=== PATIENT | male | born 1940 | race Caucasian/White ===

== ENCOUNTER → 2019-02-09 14:56 | Outpatient (CLI) | payer MEDICARE, OTHER, SELFPAY ==
--- NOTE | 2019-02-09 15:06 | XR_ITS ---
EXAM: XR lumbar spine min 4V HISTORY: Recent fall with injury and pain, low right-sided back pain ITS.REASON: LOW BACK PAIN ORDERING PHYSICIAN: Dimas Laura MD PATIENT AGE: 79 years COMPARISON: None FINDINGS: There is normal alignment with no acute fracture or dislocation evident. There is multilevel degenerative disc disease with endplate osteophytes from L1 to S1. No acute fracture or dislocation evident. There is mild sclerosis of left SI joint IMPRESSION: 1. No acute finding. 2. Multilevel degenerative disc disease with endplate osteophytes
--- NOTE | 2019-02-09 15:06 | XR_ITS ---
XR hip RT 2-3V w/pelvis HISTORY: Right hip pain following injury ITS.REASON: LOW BACK PAIN ORDERING PHYSICIAN: Dimas Laura MD PATIENT AGE: 79 years COMPARISON: None FINDINGS: There are moderate osteoarthritic changes of the right hip. No fracture or dislocation. No lytic or blastic change. IMPRESSION: Moderate osteoarthritis of the right hip, no acute fracture
--- NOTE | 2019-02-09 15:06 | XR_ITS ---
XR hip LT 2-3V w/pelvis HISTORY: Bilateral hip pain ITS.REASON: LOW BACK PAIN, ORDERING PHYSICIAN: Dimas Laura MD PATIENT AGE: 79 years COMPARISON: None FINDINGS: There are moderate osteoarthritic changes of the left hip. There is a small band of slight increased density along the medial aspect of the femoral neck. This is nonspecific and could related to an area of sclerosis from a healing fracture. No acute fracture or dislocation is evident. No bony destructive process. IMPRESSION: 1. Moderate osteoarthritis of the left hip. 2. Small band of increased density along the femoral neck medially nonspecific but could be related to an area of sclerosis from a healed fracture
== END ==
PROVIDERS: PCP Internal Medicine Adolescent Medicine; Visit Provider Internal Medicine Adolescent Medicine
DX: M54.41 Lumbago with sciatica, right side (principal)
CPT/HCPCS: 72110; 73502

== ENCOUNTER → 2019-09-09 13:05 | Outpatient (CLI) | payer MEDICARE, OTHER, SELFPAY ==
--- NOTE | 2019-09-09 13:10 | XR_ITS ---
PROCEDURE: XR KNEE RT 3V CLINICAL INDICATION: RT ANTERIOR KNEE PAIN Chronic pain COMPARISON: No exams were available for comparison FINDINGS: Mild osteoarthritic changes are present involving all 3 compartments the. No fracture or dislocation. No lytic or blastic change. Incidental vascular calcification noted. Other findings:None. IMPRESSION: Mild osteoarthritis Dictated by: Quentin Joe MD 09/10/2019 04:49 Electronically signed by Quentin Joe MD in [place] 09/10/2019 04:49
--- NOTE | 2019-09-09 13:10 | XR_ITS ---
PROCEDURE: XR HIP RT 2-3V W/PELVIS CLINICAL INDICATION: RT HIP PAIN Chronic right hip pain COMPARISON: [facility] XR hip LT 2-3V w/pelvis from 02/09/2019 FINDINGS: There are moderate osteoarthritic changes of the right hip with loss of joint space and osteosclerosis and mild osteophyte formation. No fracture or dislocation. An AP view of the pelvis also shows osteoarthritic changes of the left hip with some irregularity of the lateral aspect of the acetabulum with subchondral cystic formation. IMPRESSION: Osteoarthritis of both hips as described above. Overall no significant change Dictated by: Quentin Joe MD 09/10/2019 04:48 Electronically signed by Quentin Joe MD in [place] 09/10/2019 04:48
== END ==
PROVIDERS: PCP Internal Medicine Adolescent Medicine; Visit Provider Internal Medicine Adolescent Medicine
DX: M25.551 Pain in right hip (principal); M25.561 Pain in right knee
CPT/HCPCS: 73502; 73562

== ENCOUNTER → 2019-10-19 06:43 | Outpatient (CLI) | payer MEDICARE, OTHER, SELFPAY ==
--- NOTE | 2019-10-19 | CA_ITS ---
APPROVED REPORT Exam: Pharmacologic Technologist: Adelaida Knott Ht: 5 ft 11 in Wt: 172 lbs BSA: 1.98 m2 HR: 57 bpm BP: 159/62 mmHg Indications: Chest pain Medical History Medications: Gabapentin,,,,, Terazosin,,,,, MeLOXICAM,,,,, [place],,,,, BisOPROLOL,,,,, FluTICASONE,,,,, RoSUVASTATIN,,,,, Stress Test Details Test: LEXISCAN HR Resting HR: 56 bpm Max Heart Rate (APMHR): 139 bpm Max HR Achieved: 90 bpm Target HR (85% APMHR): 118 bpm % of APMHR: 64 Recovery HR: 65 bpm BP Resting BP: 159.0/62.0 mmHg Max BP: 160.0/62.0 mmHg Recovery BP: 153.0/60.0 mmHg ECG Clinical Exercise duration: 04:03 min Highest Stage Achieved: Stress ECG Conclusion Resting ECG: Sinus rhythm with PAC Lexiscan portion complete. Symptoms: Denied any complaint during peak infusion. No chest pain. No shortness of breath. No nausea/vomiting. Arrhythmias/Ectopy: Occasional PVC and occasional PAC. ST-T Changes: Less than 1.[address] depression. Conclusion: Images to follow. Conclusion: Images to follow. Test Summary RECOVERY 04:50 . . 63 . 153/ 60 . . REST 03:13 . . 56 . 159/ 62 . . Stage 1 01:00 . . 85 . . . . Stage 2 01:00 . . 72 . . . . Stage 3 01:00 . . 67 . 160/ 62 . . Stage 4 01:00 . . 69 . 157/ 59 . . Stage 4 01:03 . . 68 . 157/ 59 . Stop exercise at 04:03 RECOVERY 01:00 . . 74 . 154/ 62 . . RECOVERY 02:00 . . 66 . 146/ 73 . . RECOVERY 03:00 . . 73 . 146/ 73 . . RECOVERY 04:00 . . 64 . 142/ 70 . . RECOVERY 04:50 . . 63 . 153/ 60 . . Electronically signed by : Denis Wallace, 10/19/2019 19:52:44
--- NOTE | 2019-10-19 06:54 | NM_ITS ---
APPROVED REPORT Exam: Nuclear Stress Test Indication: Chest pain, HTN, High cholesterol, Tobacco use Patient Location: Outpatient Stress Tech: Adelaida Knott NM Tech:Kirti Luo, ARRT, RT (R)(N) Ht: 5 ft 11 in Wt: 172 lbs HR: 57 bpm BP: 159/62 mmHg BSA: 1.98 m2 BMI: 23.9 History: Chest pain, HTN, High cholesterol, Tobacco use Procedure: Patient received a 0.4 mg of intravenous Lexiscan, resting heart rate 57 bpm, resting blood pressure 159/62 mmHg, with Lexiscan maximum heart rate achived was 70 bpm which is Less than 85 % of the maximum predicted heart rate and blood pressure was 160/62 mmHg. With Lexiscan, patient denied any complaint of chest pain. Electrocardiogram Resting electrocardiogram showed sinus rhythm, with Lexiscan there is less than 1.[address] segment depression noted from the baseline EKG. The EKG portion of the Lexiscan Myoview is nondiagnostic. Cardiac Stress and Resting SPECT Images: Cardiac Stress and Resting SPECT images were obtained using technetium 99m Myoview 30.7 mCi stress and 10.93 mCi at rest. Gated SPECT with analysis of segmental wall motion and calculation of the ejection fraction also done. Cardiac stress and resting SPECT images show mild fixed defect inferior apically with normal contracted gated SPECT is likely secondary to soft tissue attenuation, no reversible ischemia seen. Computer derived ejection fraction is 56% with no regional wall motion abnormality, right ventricle is normal size and contractility. Conclusion: 1. The EKG portion of the Lexiscan Myoview is nondiagnostic. 2. No scintigraphic evidence of reversible ischemia seen, a fixed defect inferior apically with normal contracted gated SPECT is likely secondary to soft tissue attenuation, computer derived ejection fraction 56% with no regional wall motion abnormality, right ventricle is normal size and contractility. 3. Likely normal Lexiscan Myoview study. Electronically signed by : Denis Wallace, 10/19/2019 19:55:53
--- NOTE | 2019-10-19 07:09 | CARE MANAGER ---
TERAZOSIN GABAPENTIN NORCO MELOXICAM ROSUVASTATIN BISOPROLOL FLUTICASONE
== END ==
PROVIDERS: PCP Internal Medicine Adolescent Medicine; Visit Provider Internal Medicine Adolescent Medicine
DX: R07.2 Precordial pain (principal)
CPT/HCPCS: 78452; 93017; A9502; J2785

== ENCOUNTER → 2021-03-22 11:01 | Outpatient (CLI) | payer MEDICARE, OTHER, SELFPAY ==
[2021-03-22 11:06] LABS: Microscopic, Urine URINE MICROSCOPIC (MICROSCOPIC)
[2021-03-22 11:35] LABS: Basophils # 0.1 K/mm3 (0-0.2); Basophils % 1.2 % (0.1-2.0); Eosinophils # 0.3 K/mm3 (0.0-0.4); Eosinophils % 3.4 % (0.1-12.0); Hematocrit 37.5 % (42.0-52.0); Hemoglobin 12.1 g/dL (14.1-18.0); Lymphocytes # 2.4 K/mm3 (0.7-4.5); Lymphocytes % 30.1 % (10-50); Mean Corpuscular HGB Conc 32.2 g/dL (31.8-35.4); Mean Corpuscular Hemoglobin 29.7 pg (27.0-31.2); Mean Corpuscular Volume 92.1 fl (80-94); Mean Platelet Volume 8.8 fl (7.4-10.4); Monocytes # 0.3 K/mm3 (0.1-1.0); Monocytes % 3.9 % (1.7-9.3); Neutrophils # 4.9 K/mm3 (1.8-7.8); Neutrophils % 61.5 % (37.0-80.0); Platelet Count 201 K/mm3 (142-424); Red Blood Count 4.07 M/mm3 (4.60-6.20); Red Cell Distribution Width 15.5 % (11.5-17.5); White Blood Count 7.9 K/mm3 (4.8-10.8)
[2021-03-22 11:50] LABS: Appearance,Urine CLEAR (Clear); Bilirubin,Urine Negative (Negative); Blood, Urine 1+ (Negative); Color,Urine YELLOW (Yellow); Glucose,Urine (UA) Negative (Negative); Ketones,Urine Negative (Negative); Leukocyte Esterase,Urine 2+ (Negative); Nitrate,Urine POSITIVE (Negative); Protein,Urine Negative (Negative); Urobilinogen,Urine 0.2 EU/dl (0.2)
[2021-03-22 12:02] LABS: Alanine Aminotransferase 15 U/L (12-78); Albumin Level 4.2 g/dl (3.5-5.0); Albumin/Globulin Ratio 1.2 (1.1-1.8); Alkaline Phosphatase 104 U/L (38-126); Anion Gap 8.6 mEq/L (5-15); Aspartate Amino Transferase 33 U/L (17-59); Bilirubin,Total 0.3 mg/dl (0.2-1.3); Blood Urea Nitrogen 15 mg/dl (9-20); Calcium 9.7 mg/dl (8.4-10.2); Carbon Dioxide 29 mmol/L (22.0-30.0); Chloride 107 mmol/L (98-107); Chol/HDL Ratio 1.9 (1-3.5); Cholesterol 112 mg/dl (140-200); Estimated Glomerular Filt Rate 92 ml/min (>60); GFR (African American) 112 ML/MIN (>60); Globulin 3.5 g/dL (1.3-3.2); Glucose 96 mg/dl (74-100); HDL Cholesterol 59 mg/dl (40-60); Potassium 4.6 mmoL/L (3.5-5.1); Sodium 140 mmol/L (136-145); Total Protein,Serum 7.7 g/dl (6.3-8.2); Triglycerides 72 mg/dl (30-150); VLDL Cholesterol 14 mg/dL (0-40)
[2021-03-22 12:03] LABS: Bacteria,Urine 3+ /lpf
[2021-03-22 12:13] LABS: Direct LDL Cholesterol 33.55 mg/dL (100-129)
[2021-03-22 12:33] LABS: Prostate Specific Ag Screen 1.9 ng/ml (0.0-4.0)
== END ==
PROVIDERS: Visit Provider Internal Medicine Adolescent Medicine
DX: E78.5 Hyperlipidemia, unspecified (principal); N40.1 Benign prostatic hyperplasia with lower urinary tract symptoms; Z12.5 Encounter for screening for malignant neoplasm of prostate
CPT/HCPCS: 36415; 80053; 80061; 81001; 85025; 87086; 87088; 87186; G0103

== ENCOUNTER → 2021-06-26 08:11 | Outpatient (CLI) | payer MEDICARE, OTHER, SELFPAY ==
--- NOTE | 2021-06-26 08:16 | CT_ITS ---
PROCEDURE: CT SINUS WO CON CLINICAL HISTORY: MASS OF JAW COMPARISON: No exams were available for comparison TECHNIQUE: Axial images obtained with sagittal and coronal reformats. All CT scans at the facility use one or more dose reduction, viz: automated exposure control, ma/kV adjustment per patient size (including targeted exams where dose is matched to indication, i.e. head), or iterative reconstruction technique. FINDINGS: There is mild mucosal thickening involving the ethmoid sinuses. No sinus air-fluid level is evident. There are small bilateral nilsa bullosa with minimal rightward nasal septal deviation. The ostiomeatal units are patent. A BB is placed along the right angle of the mandible region where there is a palpable nodule. Just deep to this is a round 1.5 cm soft tissue density. This is along the lateral aspect of the submandibular gland for. There is a small extension of this nodular area toward the submandibular gland versus an unopacified vessel. Evaluation is limited without IV contrast. The inferior aspect of the right submandibular gland is slightly prominent laterally. Other smaller lymph nodes are present in both sides of the neck. There is a 1.2 cm soft tissue nodule which is superficial to the body of the right mandible. This could also be related to an enlarged lymph node. The right mastoid sinus is nearly completely opacified. There is opacification of the right middle ear. There is small amount of fluid in the left mastoid sinus. The left middle ear is aerated. The there is a periapical lucency involving the patient's left mandibular premolar consistent with periapical abscess. There are degenerative changes in the cervical spine IMPRESSION: 1. 1.5 cm soft tissue density in the right angle of the mandible region corresponding to the palpable abnormality may represent mildly prominent lymph node. There is however question of a small extension of this nodule medially to the submandibular gland versus an unopacified vessel. Suggest CT face without and with contrast for further evaluation. Just anterior to this region and slightly superior is an additional soft tissue nodule at 1.2 cm and also possibly due to a lymph node. 2. Bilateral mastoid effusions right greater than left with opacification of the right middle ear suggesting underlying inflammatory/infectious changes. Dictated by: Quentin Joe MD 06/26/2021 10:49 Quentin Joe MD in [place] 06/26/2021 10:49
== END ==
PROVIDERS: PCP Internal Medicine Adolescent Medicine; Visit Provider Internal Medicine Adolescent Medicine
DX: M27.8 Other specified diseases of jaws (principal)
CPT/HCPCS: 70486

== ENCOUNTER → 2021-11-22 10:33 | Outpatient (CLI) | payer MEDICARE, OTHER, SELFPAY ==
--- NOTE | 2021-11-22 10:41 | CT_ITS ---
FINAL REPORT TECHNIQUE: Thin section axial CT images were obtained through the neck after intravenous contrast administration. Coronal and sagittal reformats were also obtained. This study was performed with techniques to keep radiation doses as low as reasonably achievable (ALARA). Individualized dose reduction techniques using automated exposure control or adjustment of mA and/or kV according to the patient''s size were employed. CLINICAL HISTORY: right buccal./submandibular mass FINDINGS: The nasopharynx, oropharynx, hypopharynx and larynx are unremarkable. There are 2 masses visualized. The more superior mass like at the angle of the right mandible measuring 2.0 x 1.4 cm. This is well seen on image 43 of series 5. This mass appears to be a solid, fairly high attenuation mass. A second mass is seen more inferior to the body of the right mandible measuring 1.4 x 1.1 cm. This has low attenuation and is well seen on image is 52 of series 5. The visualized sinuses are clear. There is complete opacification of the right mastoid air cells and right middle ear cavity. There is prominence of the soft tissues in the region of the right torus tubarius. There is no adenopathy. There is a spiculated, noncalcified soft tissue mass at the right apex measuring 3.0 x 1.5 cm. This is well seen on image 88 of series 5. This could be postinflammatory or neoplastic. On the sagittal images, this extends to the apex. IMPRESSION: 2 soft tissue masses superficial to the right mandible. These masses have different characteristics but would each be amenable to tissue sampling. Neoplasia is not excluded. Complete opacification of the right mastoid air cells and right middle ear cavity. Asymmetric prominence of the right torus tubarius. ENT evaluation is recommended. Spiculated lesion in the right apex could be postinflammatory or neoplastic. Reviewed, Interpreted and Dictated by Nahum Zimmerman MD Transcribed by Susan Montalvo Authenticated by Nahum Zimmerman MD on 11/22/2021 03:14:34 PM [facility]
[2021-11-22 11:09] LABS: Blood Urea Nitrogen 15 mg/dl (9-20); Estimated Glomerular Filt Rate 81 ml/min (>60); GFR (African American) 98 ML/MIN (>60)
== END ==
PROVIDERS: PCP Internal Medicine Adolescent Medicine; Visit Provider Otolaryngology
DX: K11.8 Other diseases of salivary glands (principal); R22.0 Localized swelling, mass and lump, head
CPT/HCPCS: 36415; 70491; 82565; 84520; Q9967

== ENCOUNTER → 2021-11-29 09:02 | Outpatient (CLI) | payer MEDICARE, OTHER, SELFPAY ==
--- NOTE | 2021-11-29 09:03 | US_ITS ---
FINAL REPORT CLINICAL HISTORY: fna palp area rt jaw FINDINGS: Ultrasound guided facial soft tissue mass biopsy. HISTORY: Right facial mass. PROCEDURE: After informed consent was obtained and a time-out was performed, the patient was prepped and draped in usual sterile fashion over the right face. Utilizing local anesthesia and sterile technique with a 25-gauge needle, access to lesion was obtained. Three passes were made. The patient received no conscious sedation. The patient tolerated procedure well and left the department in good condition. IMPRESSION: Status post ultrasound guided biopsy of right facial mass without immediate complication. Films reviewed , interpreted and dictated by Dr. Strange. Transcribed by Juan Diego Navarro PA-C. Reviewed, Interpreted and Dictated by Rj Strange III, MD Transcribed by ANGIE Ayala Authenticated by Rj Strange III, MD on 12/01/2021 12:00:27 PM [facility]
== END ==
PROVIDERS: PCP Internal Medicine Adolescent Medicine; Visit Provider Otolaryngology
DX: R22.0 Localized swelling, mass and lump, head (principal)
CPT/HCPCS: 10005; 88173

== ENCOUNTER → 2021-12-30 09:28 | Outpatient (CLI) | payer MEDICARE, OTHER, SELFPAY | PROVIDERS: PCP Internal Medicine Adolescent Medicine; Visit Provider Otolaryngology | DX: Z01.812 Encounter for preprocedural laboratory examination (principal); Z11.52 Encounter for screening for COVID-19 | CPT/HCPCS: C9803; U0003; U0005 ==

== ENCOUNTER → 2022-01-01 10:11 | Outpatient (CLI) | payer MEDICARE, OTHER, SELFPAY ==
--- NOTE | 2022-01-01 10:37 | ECG_ITS ---
APPROVED REPORT Exam: Resting ECG HR:64 bpm ECG Measurements Heart Rate 64 AXES OR 210 P 66 QRSd 96 QRS 39 QT 402 T 42 QTc 411 Conclusion SINUS RHYTHM WITH SINUS ARRHYTHMIA WITH FIRST DEGREE AV BLOCK ABNORMAL ECG UNCONFIRMED REPORT Electronically signed by : Dimas Laura MD 01/03/2022 21:07:19
[2022-01-01 11:03] LABS: Basophils # 0.1 K/mm3 (0-0.2); Basophils % 1.3 % (0.1-2.0); Eosinophils # 0.2 K/mm3 (0.0-0.4); Eosinophils % 2.3 % (0.1-12.0); Hematocrit 39.4 % (42.0-52.0); Hemoglobin 12.7 g/dL (14.1-18.0); Lymphocytes % 21.5 % (10-50); Mean Corpuscular HGB Conc 32.3 g/dL (31.8-35.4); Mean Corpuscular Hemoglobin 30.7 pg (27.0-31.2); Mean Platelet Volume 8.7 fl (7.4-10.4); Monocytes # 0.5 K/mm3 (0.1-1.0); Neutrophils # 6.4 K/mm3 (1.8-7.8); Neutrophils % 69.9 % (37.0-80.0); Platelet Count 194 K/mm3 (142-424); Red Blood Count 4.15 M/mm3 (4.60-6.20); Red Cell Distribution Width 15.9 % (11.5-17.5); White Blood Count 9.2 K/mm3 (4.8-10.8)
[2022-01-01 12:27] LABS: Chloride 104 mmol/L (98-107); Potassium 4.5 mmoL/L (3.5-5.1); Sodium 135 mmol/L (136-145)
[2022-01-01 12:29] LABS: Alanine Aminotransferase 15 U/L (12-78); Aspartate Amino Transferase 35 U/L (17-59); Blood Urea Nitrogen 15 mg/dl (9-20); Estimated Glomerular Filt Rate 92 ml/min (>60); GFR (African American) 112 ML/MIN (>60)
[2022-01-01 12:30] LABS: Albumin Level 4.2 g/dl (3.5-5.0); Albumin/Globulin Ratio 1.2 (1.1-1.8); Alkaline Phosphatase 103 U/L (38-126); Anion Gap 9.5 mEq/L (5-15); Bilirubin,Total 0.6 mg/dl (0.2-1.3); Calcium 8.6 mg/dl (8.4-10.2); Carbon Dioxide 26 mmol/L (22.0-30.0); Globulin 3.5 g/dL (1.3-3.2); Glucose 88 mg/dl (74-100); Total Protein,Serum 7.7 g/dl (6.3-8.2)
== END ==
PROVIDERS: PCP Internal Medicine Adolescent Medicine; Visit Provider Otolaryngology
DX: Z01.818 Encounter for other preprocedural examination (principal); K11.8 Other diseases of salivary glands; R22.0 Localized swelling, mass and lump, head
CPT/HCPCS: 36415; 80053; 85025; 93005

== ENCOUNTER 2022-01-02 06:59 | Day surgery (SDC) | payer MEDICARE, OTHER, SELFPAY ==
[2022-01-02] VITALS (12 sets, daily range): BP systolic 104–166; BP diastolic 62–93; PULSE 54–82; RESP 14–18; TEMP 36.2–36.6; O2SAT 94–100; BMI 21.6
--- NOTE | 2022-01-02 07:53 | HMH.ANESCL ---
[facility] Anesthesia Checklist - Patient Identification Patient Identification: Arm Band - Structural Data Admitted From: Home Planned Operative Procedure/s: Buccal mass and neck mass excision Consent for Planned Operative Procedure(s) Verified: Yes - NPO Status Verified Time NPO: 00:00 - Additional verifications Anesthesia Reactions: No Hx Blood Transfusions: No Blood Transfusion Reaction: No - Airway Assessment C-Spine Mobility Assessed: Yes TMJ Mobility Assessed: Yes Dentition: Poor Dentition (1 tooth left) - Neurological Assessment Level of Consciousness: Awake Hx Seizures: No Numbness or tingling in extremities: No - Anesthesia Plan Anesthesia Risk discussed: Yes Anesthesia Plan: Verified ASA Class: III Anesthesia Type: General [facility] History I have reviewed the patient's past medical history: Yes Medical History: Reports:: Arrhythmia, Hypertension Denies:: Cancer, Diabetes Mellitus Type 1, Diabetes Mellitus Type 2, Internal Pacemaker, MRSA, Seizures *Have you ever received a pneumonia vaccine?: Yes *Have you received a flu vaccine this season?: Yes Other Medical History: Reports: Other. Denies: Blood Transfusion Reaction Anesthesia experience/problems:: None Other Surgeries: Yes: No Previous Surgery. No: Pacemaker Amputation: No Fractures: No - *Social History Smoking Status: Current every day smoker Tobacco Type: cigarettes # Packs/Day (cigarettes): 1 Alcohol Intake: never Substance Use Type: denies use *Occupational Status:: retired *Travel in the last 8 weeks: None Family Hx:: No significant family history
--- NOTE | 2022-01-02 07:56 | SUR.PREOP ---
Pt denies any heart problems but history shows HTN. EKG shows first degree AV Block, reported to Nilo Valentine CRNA for review and SCREED OPERATOR said OK to continue for surgery today.
--- NOTE | 2022-01-02 08:25 | SUR.PREOP ---
Updated Dr. Geller of EKG results. ok to proceed with surgery today.
--- NOTE | 2022-01-02 11:38 | HMH.ANESI ---
[facility] Anesthesia Record Part I Intake, IV Amount: 1,500 Estimated blood loss (mL): 25 Urine output (mL): 0 Blood Pressure: 134/66 SaO2: 98 Pulse Rate: 65 Respiratory Rate: 16 Temperature: 97.1 F Patient is:: Drowsy, Stable Stable to PACU at:: 11:35
--- NOTE | 2022-01-02 11:41 | HMH.OPNOTE ---
Date of procedure: 01/02/22 Pre-op Diagnosis:: Right submandibular mass, right buccal space mass Post-op Diagnosis:: Same Procedure performed:: Partial excision right submandibular gland, excision of right buccal space mass from an external approach, nerve integrity monitoring of the facial nerve Surgeon:: Jame Geller MD SUBSTITUTE BUS DRIVER:: David Lazo Anesthesia: GETA Estimated blood loss (mL): 25 Operative findings:: 2-1/2 to 3 cm right submandibular mass adjacent to but separate from the right submandibular gland. Marginal branch of the facial nerve was identified and preserved. Most of the right submandibular gland was preserved. Separate 2.5 cm right buccal space mass anterior to the masseter and inferior to the buccal fat pad and lateral to the orbicularis jacque muscle. The mass was adherent to surrounding soft tissue structures and separate from the underlying oral mucosa. Stensen's duct did not appear to be involved. Operative note:: The patient was brought to the operating room and after adequate general anesthesia, the patient was placed supine and a shoulder roll placed and then nerve integrity monitoring electrodes placed to monitor the lower branches of the facial nerve and then 1% lidocaine with epinephrine used to locally infiltrate a skin crease below the angle of the mandible and a separate skin crease just lateral to the oral commissure. Attention was first drawn to the neck. An incision was made and carried through the underlying platysma and then dissection performed deep to the platysma until the palpable mass was identified. It was adjacent to but separate from the submandibular gland. The marginal branch of the facial nerve was positively identified and then retracted superiorly and then dissection performed around the capsule of the mass it from the underlying submandibular gland. The facial artery and vein were identified and preserved and from the mass. A small portion of normal submandibular gland was included in the specimen but the bulk of the gland was left intact and functionally preserved. The mass was labeled as submandibular mass and sent for permanent section analysis. The wound was closed in 2 layers by reapproximating the platysma and subcutaneous tissues with 4-0 Vicryl and the skin edges with 5-0 nylon a sterile dressing was placed and attention drawn to the more superior buccal space mass which was clearly separate from this mass. An external approach was planned and a skin crease incision made just lateral to the oral commissure and dissection performed down to the underlying palpable mass. Careful dissection was performed around the capsule of the mass and it was somewhat adherent to the surrounding soft tissue structures. Small palisading branches of the facial nerve were individually identified and preserved and the mass was from the masseter posteriorly, the buccal fat pad superiorly, the oral constrictor muscle medially, and the orbicularis jacque muscle anteriorly. Small vascular perforators were ligated with bipolar cautery and a small feeding artery was ligated with 3-0 silk as was the corresponding vein. The specimen was sent for permanent section analysis and hemostasis was seen to be adequate. The wound was again closed in 2 layers with 4-0 Vicryl and 5-0 nylon and a sterile dressing was placed and the procedure concluded. All counts were correct and blood loss was less than 25 mL and patient was sent recovery in stable condition Condition: stable Disposition: PACU Specimens:: Right submandibular mass, right buccal space mass Complications:: None
--- NOTE | 2022-01-02 14:35 | HMH.ANESII ---
[facility] Anesthesia Record Part II Discharge Time: 12:15 Destination: Surgical Day Care (OP Surgery) PACU nurse assessment reviewed?: Yes Patient Condition:: Good Anesthesia Complications:: None Swallowing reflex intact?: Yes Cyanosis?: No Blood Pressure: 151/70 Pulse Rate: 71 Temperature: 97.5 F Mental Status: Alert & Oriented Pain level:: 4 Nausea and/or vomitting:: None Intake, IV Amount: 0
== END 2022-01-02 13:00 | disposition home or self-care (01) ==
LOC: OR 07:02
PROVIDERS: PCP Internal Medicine Adolescent Medicine; Visit Provider Otolaryngology
DX: K11.8 Other diseases of salivary glands (principal); R22.0 Localized swelling, mass and lump, head; I10 Essential (primary) hypertension; I49.9 Cardiac arrhythmia, unspecified; Z72.0 Tobacco use; Z88.0 Allergy status to penicillin; Z79.82 Long term (current) use of aspirin; Z79.899 Other long term (current) drug therapy
CPT/HCPCS: 40812; 42440; 88305; 88342; 96374; J2405

== ENCOUNTER → 2022-01-16 13:41 | Outpatient (POV) | payer MEDICARE, OTHER, SELFPAY | PROVIDERS: Visit Provider Dermatology | DX: Z00.00 Encounter for general adult medical examination without abnormal findings (principal) ==

== ENCOUNTER 2022-02-08 12:20 | Emergency (ER) | payer MEDICARE, OTHER, SELFPAY ==
[2022-02-08] VITALS (7 sets, daily range): BP systolic 129–145; BP diastolic 65–79; PULSE 45–54; RESP 10–16; TEMP 36.5; O2SAT 83–99; BMI 21.6
--- NOTE | 2022-02-08 12:09 | ECG_ITS ---
APPROVED REPORT Exam: Resting ECG HR:56 bpm ECG Measurements Heart Rate 56 AXES AR 246 P 63 QRSd 101 QRS 33 QT 422 T 54 QTc 412 Conclusion SINUS BRADYCARDIA WITH FIRST DEGREE AV BLOCK ABNORMAL ECG UNCONFIRMED REPORT Electronically signed by : Dimas Laura MD 02/09/2022 19:41:24
--- NOTE | 2022-02-08 12:24 | XR_ITS ---
FINAL REPORT CLINICAL HISTORY: chest pain COMPARISON: July 15, 2017 FINDINGS: There is lordotic positioning. The heart size is normal. The mediastinum is normal. There is coarse linear density in both lungs stable from prior exam favored to be post-inflammatory. There is biapical pleural densities probably due to scarring. There is no pneumothorax. There is no osseous abnormality. IMPRESSION: Lordotic positioning. Bilateral pulmonary densities favored to be post-inflammatory. Standard PA and lateral chest x-ray may be better able to characterize. Reviewed, Interpreted and Dictated by Nahum Zimmerman MD Transcribed by Caesar Avila Authenticated by Nahum Zimmerman MD on 02/08/2022 02:17:03 PM [facility]
--- NOTE | 2022-02-08 12:30 | PC.NURSE ---
ED MD at
[2022-02-08 12:34] LABS: Basophils # 0.2 K/mm3 (0-0.2); Basophils % 2.6 % (0.1-2.0); Chloride 106 mmol/L (98-107); Eosinophils # 0.1 K/mm3 (0.0-0.4); Eosinophils % 1.8 % (0.1-12.0); Hemoglobin 11.7 g/dL (14.1-18.0); Lymphocytes # 1.6 K/mm3 (0.7-4.5); Lymphocytes % 24.1 % (10-50); Mean Corpuscular HGB Conc 32.6 g/dL (31.8-35.4); Mean Corpuscular Hemoglobin 31.3 pg (27.0-31.2); Mean Corpuscular Volume 95.8 fl (80-94); Mean Platelet Volume 9.6 fl (7.4-10.4); Monocytes # 0.3 K/mm3 (0.1-1.0); Monocytes % 4.5 % (1.7-9.3); Neutrophils # 4.3 K/mm3 (1.8-7.8); Platelet Count 193 K/mm3 (142-424); Red Blood Count 3.75 M/mm3 (4.60-6.20); Red Cell Distribution Width 16.1 % (11.5-17.5); White Blood Count 6.4 K/mm3 (4.8-10.8)
[2022-02-08 12:35] LABS: Potassium 4.4 mmoL/L (3.5-5.1); Sodium 138 mmol/L (136-145)
[2022-02-08 12:37] LABS: Blood Urea Nitrogen 13 mg/dl (9-20); Estimated Glomerular Filt Rate 92 ml/min (>60); GFR (African American) 111 ML/MIN (>60)
[2022-02-08 12:38] LABS: Anion Gap 10.4 mEq/L (5-15); Calcium 8.2 mg/dl (8.4-10.2); Carbon Dioxide 26 mmol/L (22.0-30.0); Glucose 109 mg/dl (74-100)
--- NOTE | 2022-02-08 12:40 | HMH.EDGENADL ---
ED Disposition Clinical Impression: Nontraumatic chest pain Disposition: Home, Self-Care Condition on Discharge: Good Additional Instructions: Follow-up with your PCP within the next week, return to ED with new, worsening, concerning symptoms. Continue home medications as previously directed. Referrals: Dimas Laura MD [Primary Care Provider] - - Critical Care Critical Care Time: No Attestation: On , the high probability of a clinically significant, sudden or life threatening deterioration of the following system(s) required my full and direct attention, intervention and personal management. The time I documented below is in addition to time spent performing reported procedures but includes the following listed in this critical care notation. Medical Decision Making - Medical Records Medical records reviewed: Yes: I reviewed the patient's medical records. - Shaun Inquiry Pt receiving controlled substance: No Vital Signs: 02/08/22 12:20 02/08/22 13:50 02/08/22 13:59 Temperature 97.7 F Temperature Source Oral Pulse Rate 54 L 51 L Pulse Rate [Radial] 54 L Respiratory Rate 16 15 12 Blood Pressure 145/68 H 145/68 H Blood Pressure [Right Arm] 137/65 Blood Pressure Mean [Right Arm] 89 Blood Pressure Position [Right Arm] Sitting 02 Sat by Pulse Oximetry 98 99 83 L Oxygen Delivery Method Room Air Room Air 02/08/22 14:31 02/08/22 15:00 Temperature Temperature Source Pulse Rate 52 L 45 L Pulse Rate [Radial] Respiratory Rate 10 L 14 Blood Pressure 138/79 144/71 H Blood Pressure [Right Arm] Blood Pressure Mean [Right Arm] Blood Pressure Position [Right Arm] 02 Sat by Pulse Oximetry 94 L 97 Oxygen Delivery Method - Lab Data Lab Results 02/08/22 12:20: WBC 6.4, RBC 3.75 L, Hgb 11.7 L, Hct 36.0 L, MCV 95.8 H, MCH 31.3 H, MCHC 32.6, RDW 16.1, Plt Count 193, MPV 9.6, Neut % (Auto) 67.0, Lymph % (Auto) 24.1, [place] % (Auto) 4.5, Eos % (Auto) 1.8, Baso % (Auto) 2.6 H, Neut # (Auto) 4.3, Lymph # (Auto) 1.6, [place] # (Auto) 0.3, Eos # (Auto) 0.1, Baso # (Auto) 0.2 02/08/22 12:20: Sodium 138, Potassium 4.4, Chloride 106, Carbon Dioxide 26, Anion Gap 10.4, BUN 13, Creatinine 0.80, Estimated GFR 92, Est GFR ( Amer) 111, Glucose 109 H, Calcium 8.2 L, Troponin I < 0.01 02/08/22 12:20: Lipase 64 02/08/22 15:01: Troponin I < 0.01 Result diagrams: 02/08/22 12:20 02/08/22 12:20 Orders (Tests/Meds): ED MEDICATIONS Discontinued Medications Generic Name Dose Route Start Last Admin Trade Name Freq PRN Reason Stop Dose Admin Acetaminophen 500 mg 02/08/22 12:54 02/08/22 13:41 Acetaminophen 500mg Tab PO 02/08/22 12:55 500 mg ONCE ONE Administration Belladonna Alkaloids 60 ml 02/08/22 12:55 02/08/22 13:41 Gi Cocktail 60ml Udc PO 02/08/22 12:56 60 ml ONCE ONE Administration ORDERS Category Date Time Status Troponin I Q3H Lab 02/08/22 18:30 Ordered - Radiology Data #1 Image(s): Chest Image Reviewed: Yes I reviewed the patient's radiology results, Yes I reviewed the patient's radiology image FINDINGS: There is lordotic positioning. The heart size is normal. The mediastinum is normal. There is coarse linear density in both lungs stable from prior exam favored to be post-inflammatory. There is biapical pleural densities probably due to scarring. There is no pneumothorax. There is no osseous abnormality. IMPRESSION: Lordotic positioning. Bilateral pulmonary densities favored to be post-inflammatory. Standard PA and lateral chest x-ray may be better able to characterize. Reviewed, Interpreted and Dictated by Nahum Zimmerman MD Transcribed by Caesar Avila - ECG Data Tracing #1 I reviewed this ECG and interpreted as documented below: EKG sinus bradycardia with a rate of 56, normal axis, no ST segment elevation, first-degree AV block, QTC 412 ms Medical Decision Narrative: 82-year-old male with past medical history of hyp
[2022-02-08 12:52] LABS: Troponin I < 0.01 ng/ml (0.00-0.034)
[2022-02-08 13:10] LABS: Lipase 64 U/L (23-300)
--- NOTE | 2022-02-08 14:56 | PC.NURSE ---
patient given an update; drawing 2nd troponin here shortly
[2022-02-08 15:48] LABS: Troponin I < 0.01 ng/ml (0.00-0.034)
--- NOTE | 2022-02-08 16:05 | PC.NURSE ---
Patient given an update
--- NOTE | 2022-02-08 16:14 | PC.NURSE ---
ED MD at for update on POC
== END 2022-02-08 17:00 | disposition home or self-care (01) ==
PROVIDERS: Emergency Provider Emergency Medicine; PCP Internal Medicine Adolescent Medicine
DX: R07.9 Chest pain, unspecified (principal); R10.13 Epigastric pain; I10 Essential (primary) hypertension; I49.9 Cardiac arrhythmia, unspecified; J44.9 Chronic obstructive pulmonary disease, unspecified; F17.210 Nicotine dependence, cigarettes, uncomplicated; Z79.51 Long term (current) use of inhaled steroids; Z79.82 Long term (current) use of aspirin; Z79.899 Other long term (current) drug therapy; Z88.0 Allergy status to penicillin
CPT/HCPCS: 71045; 80048; 83690; 84484; 85025; 93005; 99285

== ENCOUNTER → 2022-03-03 10:18 | Outpatient (CLI) | payer MEDICARE, OTHER, SELFPAY ==
[2022-03-03 10:26] LABS: MANUAL DIFFERENTIAL MANUAL DIFFERENTIAL (MANUAL DIFF)
[2022-03-03 11:03] LABS: Basophils # 0.1 K/mm3 (0-0.2); Basophils % 1.9 % (0.1-2.0); Eosinophils # 0.3 K/mm3 (0.0-0.4); Eosinophils % 4.2 % (0.1-12.0); Hematocrit 38.8 % (42.0-52.0); Hemoglobin 12.2 g/dL (14.1-18.0); Lymphocytes # 1.6 K/mm3 (0.7-4.5); Lymphocytes % 24.1 % (10-50); Mean Corpuscular HGB Conc 31.5 g/dL (31.8-35.4); Mean Corpuscular Hemoglobin 30.7 pg (27.0-31.2); Mean Corpuscular Volume 97.6 fl (80-94); Monocytes # 0.4 K/mm3 (0.1-1.0); Monocytes % 5.7 % (1.7-9.3); Neutrophils # 4.1 K/mm3 (1.8-7.8); Platelet Count 196 K/mm3 (142-424); Red Blood Count 3.97 M/mm3 (4.60-6.20); Red Cell Distribution Width 15.8 % (11.5-17.5); White Blood Count 6.4 K/mm3 (4.8-10.8)
[2022-03-03 11:50] LABS: Blood Urea Nitrogen 21 mg/dl (9-20); Calcium 9.1 mg/dl (8.4-10.2); Carbon Dioxide 28 mmol/L (22.0-30.0); Chloride 104 mmol/L (98-107); Estimated Glomerular Filt Rate 80 ml/min (>60); GFR (African American) 97 ML/MIN (>60); Glucose 96 mg/dl (74-100); Sodium 138 mmol/L (136-145)
[2022-03-03 13:02] LABS: Eosinophils % 4 % (0-3); Lymphocytes % 22 % (10-50); Monocytes % 4 % (2-9); Neutrophils % 68 % (42-76); Total Cells Counted 50
[2022-03-03 13:03] LABS: Platelet Estimate Normal; RBC Morphology Normal
== END ==
PROVIDERS: PCP Internal Medicine Adolescent Medicine; Visit Provider Otolaryngology
DX: H65.90 Unspecified nonsuppurative otitis media, unspecified ear (principal); H91.90 Unspecified hearing loss, unspecified ear; Z01.818 Encounter for other preprocedural examination; Z11.52 Encounter for screening for COVID-19
CPT/HCPCS: 36415; 80048; 85007; 85014; 85018; 85048; 85049; C9803; U0003; U0005

== ENCOUNTER 2022-03-06 09:51 | Day surgery (SDC) | payer MEDICARE, OTHER, SELFPAY ==
[2022-03-06] VITALS (10 sets, daily range): BP systolic 139–180; BP diastolic 58–93; PULSE 60–70; RESP 12–18; TEMP 36.2–36.3; O2SAT 92–100; BMI 21.4
--- NOTE | 2022-03-06 10:40 | HMH.OPNOTE ---
Date of procedure: 03/06/22 Pre-op Diagnosis:: Chronic serous otitis media Post-op Diagnosis:: Chronic serous otitis media Procedure performed:: Bilateral tympanostomy and tube placement Surgeon:: Jame Geller MD SALOON KEEPER:: David Lazo Anesthesia: GETA Estimated blood loss (mL): 0 Operative findings:: Serous otitis media bilaterally Operative note:: The patient was brought to the operating room and after adequate general anesthesia the ears were draped in the usual sterile fashion and operating microscope employed to visualize the tympanic membranes. Tympanostomies were made in the anterior-inferior quadrant and this was done bilaterally and suction employed to clear the middle ear space effusion. [place] T tubes were then placed and Ciprodex drops applied and the procedure concluded. All counts correct. Blood loss 0. Patient was sent to recovery in stable condition. Condition: stable Disposition: PACU Complications:: none
--- NOTE | 2022-03-06 10:47 | HMH.ANESCL ---
[facility] Anesthesia Checklist - Patient Identification Patient Identification: Arm Band - Structural Data Admitted From: Home Planned Operative Procedure/s: BMT Consent for Planned Operative Procedure(s) Verified: Yes Verified Documents: Surgical Consent, History and Physical - NPO Status Verified Time NPO: 00:00 - Additional verifications Anesthesia Reactions: No Hx Blood Transfusions: No Blood Transfusion Reaction: No - Airway Assessment C-Spine Mobility Assessed: Yes (mp2) TMJ Mobility Assessed: Yes Dentition: Poor Dentition - Neurological Assessment Level of Consciousness: Awake, Alert - Anesthesia Plan Anesthesia Risk discussed: Yes Anesthesia Plan: Verified ASA Class: III Anesthesia Type: General [facility] History I have reviewed the patient's past medical history: Yes Medical History: Reports:: Arrhythmia, Cancer, Chronic Obstructive Pulmonary Disease (COPD), Hypertension Denies:: Diabetes Mellitus Type 1, Diabetes Mellitus Type 2, Internal Pacemaker, MRSA, Seizures *Have you ever received a pneumonia vaccine?: Yes *Have you received a flu vaccine this season?: Yes Other Medical History: Reports: Other. Denies: Blood Transfusion Reaction Anesthesia experience/problems:: nac Other Surgeries: Yes: Other. No: Pacemaker Amputation: No Fractures: No - *Social History Smoking Status: Current every day smoker Tobacco Type: cigarettes # Packs/Day (cigarettes): 1 Alcohol Intake: never Substance Use Type: denies use *Occupational Status:: retired Housing: house Household Members: none *Travel in the last 8 weeks: None Family Hx:: No significant family history
--- NOTE | 2022-03-06 10:48 | HMH.ANESI ---
[facility] Anesthesia Record Part I Intake, IV Amount: 400 Estimated blood loss (mL): 0 Urine output (mL): 0 Blood Pressure: 142/81 SaO2: 98 Pulse Rate: 70 Respiratory Rate: 16 Temperature: 97.2 F Patient is:: Drowsy, Stable Stable to PACU at:: 10:45
--- NOTE | 2022-03-06 13:42 | P.PN_ITS ---
[facility] Anesthesia Record Part II Discharge Time: 11:15 Destination: Surgical Day Care (OP Surgery) PACU nurse assessment reviewed?: Yes Patient Condition:: Good Anesthesia Complications:: None Swallowing reflex intact?: Yes Cyanosis?: No Blood Pressure: 139/87 Pulse Rate: 67 Temperature: 97.2 F Mental Status: Alert & Oriented Pain level:: 0 Nausea and/or vomitting:: None Intake, IV Amount: 0
== END 2022-03-06 11:49 | disposition home or self-care (01) ==
LOC: OR 09:52
PROVIDERS: PCP Internal Medicine Adolescent Medicine; Visit Provider Otolaryngology
DX: H65.23 Chronic serous otitis media, bilateral (principal); J44.9 Chronic obstructive pulmonary disease, unspecified; I10 Essential (primary) hypertension; I49.9 Cardiac arrhythmia, unspecified; Z85.9 Personal history of malignant neoplasm, unspecified; Z72.0 Tobacco use; Z79.82 Long term (current) use of aspirin; Z79.899 Other long term (current) drug therapy; Z79.51 Long term (current) use of inhaled steroids
CPT/HCPCS: 69436; J2405

== ENCOUNTER → 2022-03-08 14:23 | Outpatient (CLI) | payer MEDICARE, OTHER, SELFPAY ==
[2022-03-10 09:15] LABS: Prostate Specific Ag 8.9 ng/mL (0.0-4.0)
== END ==
PROVIDERS: Visit Provider Urology
DX: N40.1 Benign prostatic hyperplasia with lower urinary tract symptoms (principal)
CPT/HCPCS: 36415; 84153; 84154

== ENCOUNTER → 2022-03-16 13:48 | Outpatient (CLI) | payer MEDICARE, OTHER, SELFPAY ==
--- NOTE | 2022-03-16 13:52 | XR_ITS ---
FINAL REPORT CLINICAL HISTORY: hip pain, patient has existing cancer in prostate, lung COMPARISON: September 09, 2019 FINDINGS: 2 views of the right hip with an AP pelvis were obtained. There is no acute fracture or dislocation. There are advanced hypertrophic changes of osteoarthritis of the right hip with subchondral sclerosis and degenerative cyst formation. There is partial collapse of the superior right femoral head. Findings have significantly progressed since the prior exam. There are moderate hypertrophic changes at the lateral left acetabular margin. IMPRESSION: Significant progression of osteoarthritis of the right hip with partial collapse of the superior femoral head. Reviewed, Interpreted and Dictated by Nahum Zimmerman MD Transcribed by Caesar Avila Authenticated by Nahum Zimmerman MD on 03/16/2022 03:18:34 PM [facility]
== END ==
PROVIDERS: PCP Internal Medicine Adolescent Medicine; Visit Provider Orthopaedic Surgery
DX: M25.551 Pain in right hip (principal)
CPT/HCPCS: 73502

== ENCOUNTER → 2022-05-09 11:44 | Outpatient (CLI) | payer MEDICARE, OTHER, SELFPAY ==
[2022-05-09 12:06] LABS: Microscopic, Urine URINE MICROSCOPIC (MICROSCOPIC)
--- NOTE | 2022-05-09 12:18 | XR_ITS ---
FINAL REPORT CLINICAL HISTORY: hip pain COMPARISON: March 16, 2022 FINDINGS: RIGHT HIP Two views of the right hip with an AP pelvis demonstrate worsening of the flattening of the superior right femoral head which may be due to a subacute fracture or osteonecrosis. There are multiple subchondral cysts of the superior right femoral head and superior acetabulum. There are severe degenerative changes of the right hip. There are moderate degenerative changes of the left hip. The visualized bony structures are well aligned. There are mild vascular calcifications. IMPRESSION: Flattening of the right superior femoral head may be due to subacute fracture or osteonecrosis. If indicated MRI may be helpful. Moderate and severe degenerative changes. Reviewed, Interpreted and Dictated by Rj Strange III, MD Transcribed by Priscilla Taveras Authenticated and [facility]
--- NOTE | 2022-05-09 12:18 | XR_ITS ---
FINAL REPORT CLINICAL HISTORY: femur pain.. FINDINGS: RIGHT FEMUR Two views of the right femur demonstrate worsening of the flattening of the superior right femoral head which may be due to a subacute fracture or osteonecrosis. There are multiple subchondral cysts of the superior right femoral head and superior acetabulum. There are severe degenerative changes of the right hip. There are mild vascular calcifications. IMPRESSION: Flattening of the superior right femoral head, may be due to subacute fracture or osteonecrosis. If indicated MRI may be helpful. Severe degenerative changes. Reviewed, Interpreted and Dictated by Rj Strange III, MD Transcribed by Priscilla Taveras Authenticated and [facility]
[2022-05-09 12:35] LABS: Appearance,Urine CLEAR (Clear); Basophils # 0.1 K/mm3 (0-0.2); Basophils % 1.2 % (0.1-2.0); Bilirubin,Urine Negative (Negative); Blood, Urine Negative (Negative); Color,Urine YELLOW (Yellow); Eosinophils # 0.1 K/mm3 (0.0-0.4); Glucose,Urine (UA) Negative (Negative); Hematocrit 38.6 % (42.0-52.0); Hemoglobin 12.2 g/dL (14.1-18.0); Ketones,Urine Negative (Negative); Leukocyte Esterase,Urine 2+ (Negative); Lymphocytes # 1.8 K/mm3 (0.7-4.5); Lymphocytes % 25.4 % (10-50); Mean Corpuscular HGB Conc 31.6 g/dL (31.8-35.4); Mean Corpuscular Hemoglobin 30.7 pg (27.0-31.2); Mean Corpuscular Volume 97.1 fl (80-94); Mean Platelet Volume 9.1 fl (7.4-10.4); Monocytes # 0.4 K/mm3 (0.1-1.0); Monocytes % 5.2 % (1.7-9.3); Neutrophils # 4.6 K/mm3 (1.8-7.8); Neutrophils % 66.3 % (37.0-80.0); Nitrate,Urine POSITIVE (Negative); PH,Urine 5.5 (5.0-8.5); Platelet Count 217 K/mm3 (142-424); Protein,Urine Negative (Negative); Red Blood Count 3.98 M/mm3 (4.60-6.20); Red Cell Distribution Width 15.6 % (11.5-17.5); Specific Gravity, Urine <= 1.005 (1.005-1.030); Urobilinogen,Urine 0.2 EU/dl (0.2)
[2022-05-09 12:46] LABS: Bacteria,Urine 4+ /lpf; RBC,Urine Occasional #/hpf (0-3); Squamous Epithelial Cell,Urine Occasional #/hpf (0-5)
[2022-05-09 13:47] LABS: Chloride 109 mmol/L (98-107); Potassium 4.3 mmoL/L (3.5-5.1); Sodium 140 mmol/L (136-145)
[2022-05-09 13:50] LABS: Alanine Aminotransferase 16 U/L (12-78); Albumin Level 3.7 g/dl (3.5-5.0); Albumin/Globulin Ratio 1.2 (1.1-1.8); Alkaline Phosphatase 117 U/L (38-126); Anion Gap 8.3 mEq/L (5-15); Aspartate Amino Transferase 37 U/L (17-59); Bilirubin,Total 0.3 mg/dl (0.2-1.3); Blood Urea Nitrogen 12 mg/dl (9-20); Calcium 9.6 mg/dl (8.4-10.2); Carbon Dioxide 27 mmol/L (22.0-30.0); Estimated Glomerular Filt Rate 92 ml/min (>60); GFR (African American) 111 ML/MIN (>60); Globulin 3.1 g/dL (1.3-3.2); Glucose 103 mg/dl (74-100); Total Protein,Serum 6.8 g/dl (6.3-8.2)
== END ==
PROVIDERS: PCP Internal Medicine Adolescent Medicine; Visit Provider Physician Assistant Surgical
DX: M89.8X5 Other specified disorders of bone, thigh; M25.551 Pain in right hip; N39.0 Urinary tract infection, site not specified; B96.20 Unspecified Escherichia coli [E. coli] as the cause of diseases classified elsewhere
CPT/HCPCS: 36415; 73502; 73552; 80053; 81001; 85025; 86850; 87086; 87088; 87186

== ENCOUNTER → 2022-05-12 08:53 | Outpatient (CLI) | payer MEDICARE, OTHER, SELFPAY | PROVIDERS: PCP Internal Medicine Adolescent Medicine; Visit Provider Physician Assistant Surgical | DX: M25.559 Pain in unspecified hip (principal); Z20.822 Contact with and (suspected) exposure to COVID-19 | CPT/HCPCS: C9803; U0003; U0005 ==

== ENCOUNTER 2022-05-14 09:46 | Inpatient (IN) | payer MEDICARE, OTHER, SELFPAY ==
--- NOTE | 2022-05-10 11:47 | SW/DCPLANNER ---
Addendum entered by [facility] 05/16/22 08:20: The plan for this patient is to discharge to [facility] today SNF level of care. COVID swab will be collected this AM. Patient stated that his nephew will transport him today. Addendum entered by [facility] 05/15/22 15:14: Cheng garrison/ [facility] stated that she can accept this patient pending negative COVID swab and that Dr Carballo can accept at [facility]. Cheng has reached out to Dr Carballo. I will inform patient of discharge plan. Patient could discharge tomorrow. Addendum entered by [facility] 05/15/22 11:20: Lakeisha garrison/ [facility] stated that she can accept this patient pending three day qualifying stay. Per Danielle Mayorga patient is medically stable for discharge. I also reached out to Cheng garrison/ [facility] and she stated that she can accept traditional Medicare if in inpatient status: patient information has also been faxed to Cheng. [facility] does not have any beds at this time. Addendum entered by [facility] 05/15/22 09:24: I spoke with this patient this AM regarding discharge plans. PT has recommended SNF level of care at time of discharge. Patient is agreeable to short term placement in [place] at time of discharge. Patient information will be faxed to [facility]. Danielle Mayorga stated that once placement is secure patient can discharge. Original Note: I attempted to contact this patient regarding [facility]R on 05/17/22: patient did not answer. I then contacted patient person to notify (Coco): Coco stated that they are unsure of discharge plans but patient anticipates returning home. I explained to Coco that PT/OT will evaluate this patient after surgery and give safe discharge recommendations and I will follow up with patient and assist with discharge planning.
[2022-05-14] VITALS (21 sets, daily range): BP systolic 112–172; BP diastolic 45–90; PULSE 55–93; RESP 12–18; TEMP 36.3–43; O2SAT 94–100; BMI 20.4
--- NOTE | 2022-05-14 06:25 | SUR.PREOP ---
REVIEWED HOME MED LIST WITH PT. PT UNSURE OF MEDICATIONS AND DOSAGE.
[2022-05-14 06:37] LABS: Coronavirus 19, PCR Not Detected (NotDetected); Influenza A, PCR Not Detected (NotDetected); Influenza B, PCR Not Detected (NotDetected)
--- NOTE | 2022-05-14 08:47 | HMH.ANESCL ---
[facility] Anesthesia Checklist - Structural Data Admitted From: Home Planned Operative Procedure/s: r danyelle Consent for Planned Operative Procedure(s) Verified: Yes - Additional verifications Anesthesia Reactions: No Hx Blood Transfusions: No Blood Transfusion Reaction: No - Airway Assessment C-Spine Mobility Assessed: Yes TMJ Mobility Assessed: Yes Dentition: Edentulous - Neurological Assessment Level of Consciousness: Awake, Alert, Appropriate - Anesthesia Plan Anesthesia Risk discussed: Yes Anesthesia Plan: Verified ASA Class: IV Anesthesia Type: MAC w/Spinal [facility] History I have reviewed the patient's past medical history: Yes Medical History: Reports:: Arrhythmia, Cancer, Chronic Obstructive Pulmonary Disease (COPD), Hypertension Denies:: Diabetes Mellitus Type 1, Diabetes Mellitus Type 2, Internal Pacemaker, MRSA, Seizures *Have you ever received a pneumonia vaccine?: Yes *Have you received a flu vaccine this season?: Yes Other Medical History: Reports: Other. Denies: Blood Transfusion Reaction Anesthesia experience/problems:: none Laterality Cases: Left: Cataract, Bilateral: Myringotomy (Ear Tubes) Other Surgeries: Yes: No Previous Surgery, Cancer Surgery, Colonoscopy, Other. No: Pacemaker Amputation: No Fractures: No - *Social History Last grade of school completed: GED Smoking Status: Current every day smoker Tobacco Type: cigarettes # Packs/Day (cigarettes): 1 Alcohol Intake: never Substance Use Type: denies use *Occupational Status:: retired Housing: house Household Members: none *Travel in the last 8 weeks: None Family Hx:: Cancer
--- NOTE | 2022-05-14 09:53 | SUR.OPER ---
0953-family updated at this time
--- NOTE | 2022-05-14 10:01 | HMH.PHAINT ---
MEDICATION RECONCILIATION COMPLETED ON PATIENT USING EXTERNAL FILL HISTORY FROM PHARMACY. -YAW SANCHEZ, [place]
--- NOTE | 2022-05-14 10:41 | XR_ITS ---
FINAL REPORT CLINICAL HISTORY: s/p right total hip arthroplasty, post op COMPARISON: 05/09/2022 FINDINGS: RIGHT HIP Two views of the right hip demonstrate no acute fracture or dislocation. There has been interval postoperative change of right hip arthroplasty. No hardware complication is seen. The visualized bony structures are well aligned. No soft tissue abnormality is seen. IMPRESSION: Postoperative change of right hip arthroplasty without hardware complication identified. Reviewed, Interpreted and Dictated by Rj Strange III, MD Transcribed by Reena Garvin Authenticated and [facility]
--- NOTE | 2022-05-14 11:10 | HMH.ANESI ---
[facility] Anesthesia Record Part I Intake, IV Amount: 2,000 Estimated blood loss (mL): 300 Urine output (mL): 250 Blood Pressure: 117/70 SaO2: 99 Pulse Rate: 62 Respiratory Rate: 12 Temperature: 97.4 F Patient is:: Awake, Stable Stable to PACU at:: 11:05
--- NOTE | 2022-05-14 11:24 | HMH.OPNOTE ---
Date of procedure: 05/14/22 Pre-op Diagnosis:: Advanced degenerative arthritis, right hip Post-op Diagnosis:: Same Procedure performed:: Uncemented total hip arthroplasty, right hip Surgeon:: Festus Spears MD Hunting Sales Associate(s):: Danielle Lr PA-C DIET ASSISTANT:: Timmy Santos Anesthesia: spinal Estimated blood loss (mL): 300 Clinical Note:: Patient is an 82-year-old male with severe osteoarthritis of the right hip unresponsive to conservative management. The arthritis is causing severe pain and significant disability and has not responded well to conservative management. His mobility and quality of life are severely impacted. The pain is also affecting his lifestyle, activities of daily living and significantly impacting his sleep. Also he is at a high risk of falls from the arthritis. Therefore, a total hip arthroplasty is indicated to relieve pain and to reduce the disability and risk of falls. Please refer to orthopedic office note for full details. Operative findings:: Preoperative examination and x-ray findings were consistent with the above diagnosis. Intraoperatively, end-stage osteoarthritis of the hip joint is noted. The femoral head was grossly arthritic and misshapen, and osteophytes were noted on both the acetabular and the femoral side. The capsule/soft tissues are contracted and tight. The capsule was thickened, and range of motion was markedly decreased. The bone quality is good. Operative note:: On the day of the procedure the patient was met in the preoperative area and the patient was positively identified. A physical examination was performed and documented. The operative site was appropriately marked and initialed by me. I again reviewed the diagnosis, natural history and management options in detail including both nonsurgical and surgical. We discussed the proposed surgery, risks and benefits and alternatives in detail. The complications discussed include but are not limited to infection, bleeding, injury to nerves, blood vessels and tendons, DVT and PE, fracture, limb length inequality, dislocation, implant malpositioning, implant failure, squeaking, loosening, acetabular wear, osteolysis, periprosthetic femur fracture, heterotopic ossification, abductor weakness and limp, incomplete relief of pain, incomplete recovery of function, chronic pain, likely need for further surgery in future including revision, anesthetic complications including heart attack, stroke and even . We also discussed the postoperative recovery and rehabilitation. Patient verbalized a good understanding and wished to proceed with the proposed surgery. Patient understood the risks, agreed to proceed with surgery, signed the consent form and no guarantees or assurances were given or implied. The patient was brought to the operating room and a spinal anesthesia was administered by the military communications specialist. The patient was then positioned in the left lateral decubitus position with the right hip facing up. We used [employer] hip positioner for this. All the bony prominences were appropriately padded. The right hip was then prepped with isopropyl alcohol followed by chlorhexidine and draped in the usual sterile fashion. The entire operative team wore isolation suits, and the Operating Room traffic was controlled. The skin incision was marked for a posterior approach to the hip joint. The perineum and the operative site were sealed off with Ioban drape. A preprocedure timeout was performed as per hospital protocol identifying the patient, correct surgery, and correct site. Administration of prophylactic antibiotics (IV Ancef and vancomycin) was confirmed with the military communications specialist. Before completion of the procedure 1 more gram of IV Ancef was administered as the operating time was over 2 hours. We have also administered IV tranexamic acid just before the incision and another dose at the end of the procedure, to reduce the thomas-operative bleeding. A posterior approach was used to the right hip joint. T
--- NOTE | 2022-05-14 11:28 | PC.NURSE ---
anesthesia notified pt heart rate now irregular after being regular upon arrival to pacu. EKG ordered.
--- NOTE | 2022-05-14 11:29 | ECG_ITS ---
APPROVED REPORT Exam: Resting ECG HR:56 bpm ECG Measurements Heart Rate 56 AXES [place] 248 P 79 QRSd 98 QRS 13 QT 456 T 31 QTc 447 Conclusion SINUS BRADYCARDIA WITH FIRST DEGREE AV BLOCK ABNORMAL ECG UNCONFIRMED REPORT Electronically signed by : Dimas Laura MD 05/14/2022 21:42:53
--- NOTE | 2022-05-14 13:34 | HMH.PHAVTE ---
[facility] Pharmacy VTE Monitoring - Patient Demographics Admission date: 05/14/22 Report Date: 05/14/22 Time: 13:34 Allergies/Adverse Reactions: Patient Allergies Penicillins Allergy (Verified 05/14/22 06:28) Height: 1.8 m Weight: 65.317 kg - Prophylaxis VTE Prophylaxis Ordered?: Yes Types of VTE Prophylaxis: IPCS Thigh High Location of Applied Device: Bilateral Lower Extremeties
--- NOTE | 2022-05-14 14:57 | HMH.ORTHHP ---
*Admission Date: 05/14/22 *Reason for consult:: s/p right total hip arthroplasty *History of present illness: Patient is an 82 year old male admitted to the inpatient service today following an uneventful right total hip arthroplasty. He is known to have severe degenerative arthritis of the the right hip and has had pain for many years that has gradually worsened, becoming debilitating in the past few months. No known injury. He complains of constant pain in his right hip that he rates a 10 out of 10 at all times. He states that the pain radiates down to his knee and is aggravated with standing, walking, climbing stairs, or going from a seated to standing position. He reports that he takes prescribed [place] for his pain with no relief. He also reports frequent sleep disturbances and night pain. At baseline he typically ambulates without a cane or walker, but states that he has just recently began use of a walker in the past few months due to the pain worsening. He is also using a wheelchair for longer distances, as he states he cannot walk more than a few feet without significant pain. He has also noticed that his right leg is shorter than his left. He reports that the pain makes all activities of daily living difficult and has caused him to be less active than he would like. He denies any back pain or distal numbness/tingling. His past medical history is significant for hyperlipidemia, hypertension, COPD, and cancer (prostate, oral, lung). He was scheduled to begin radiation treatments for his cancer but has postponed treatment, as he is more concerned about his hip pain which is significantly impacting his quality of life. 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 Following surgery, this afternoon the patient is sitting comfortably in bed. He states that he had lunch and is eating and drinking well. No episodes of nausea or vomiting. He states that his right hip feels sore but denies pain. He reports some numbness/tingling in the right lower extremity; he received spinal anesthesia. No history of chest pain, palpitations, shortness of breath, fevers, chills, or rigors. He denies any other symptoms or concerns at this time. [facility] History Medical History: Reports:: Arrhythmia, Cancer, Chronic Obstructive Pulmonary Disease (COPD), Hypertension Denies:: Diabetes Mellitus Type 1, Diabetes Mellitus Type 2, Internal Pacemaker, MRSA, Seizures *Have you ever received a pneumonia vaccine?: Yes *Have you received a flu vaccine this season?: Yes Other Medical History: Reports: Other. Denies: Blood Transfusion Reaction Anesthesia experience/problems:: none Laterality Cases: Left: Cataract, Bilateral: Myringotomy (Ear Tubes) Other Surgeries: Yes: No Previous Surgery, Cancer Surgery, Colonoscopy, Other. No: Pacemaker Amputation: No Fractures: No - *Social History Last grade of school completed: GED Smoking Status: Current every day smoker Tobacco Type: cigarettes # Packs/Day (cigarettes): 1 Alcohol Intake: never Substance Use Type: denies use *Occupational Status:: retired Housing: house Household Members: none *Travel in the last 8 weeks: Inside the [place] Family Hx:: Cancer Review of Systems - Review of Systems Review of systems:: pertinent systems reviewed and negative unless documented below - Constitutional Denies anorexia, Denies body ache(s), Denies chills, Denies fatigue, Denies fever(s), Denies headache(s) - Eyes Denies change in vision - ENT Denies dizziness, Denies difficulty swallowing, Denies headache(s), Denies nasal congestion, Denies neck lump, Denies neck pain, Denies sore throat - *Cardiovascular Denies chest pain, Denies chest pain at rest, Denies chest pain with activity, Denies shortness of breath, Denies shortness of breath with activity, Denies radiating jaw, neck or arm pain - *Respiratory Denies chest congestion, Denies cough, Denies shortness of breath, Denies pain on inspiration, Denies pain with cough, Denies w
[2022-05-14 15:36] LABS: Microscopic,Cath URINE MICROSCOPIC (MICROSCOPIC)
[2022-05-14 15:40] LABS: Appearance,Urine/Cath CLEAR (Clear); Blood, Urine/Cath TRACE-I (Negative); Color,Urine/Cath YELLOW (Yellow); Glucose,Urine/Cath (UA) Negative (Negative); Ketones,Urine/Cath TRACE (Negative); Leukocyte Esterase,Cath Negative (Negative); Nitrate,Cath Negative (Negative); PH,Urine/Cath 5.5 (5.0-8.5); Protein,Urine/Cath Negative (Negative); Specific Gravity, Urine/Cath >= 1.030 (1.005-1.030); Urobilinogen,Cath 0.2 EU/dl (0.2)
[2022-05-14 15:48] LABS: Bilirubin,Cath 1+ (Negative)
[2022-05-14 16:06] LABS: Bacteria,Urine/Cath TRACE /lpf; CA Oxalate Crystals,Ur/Cath 2+ /lpf; Squamous Epithelial Ur./Cath Occasional #/hpf (0-5)
--- NOTE | 2022-05-14 17:11 | PC.NURSE ---
Pt requested that his cagle cath be taken out d/t it being uncomfortable. This RN removed cagle cath and gave pt his urinal.
--- NOTE | 2022-05-14 18:06 | PC.NURSE ---
Pt has been very insistent in getting out of bed. Pt has also removed wedge multiple times and thrown on floor. Pt has been constantly reminded of the importance of keeping that wedge in. Pt is complaining of being uncomfortable w/ the wedge and requires frequent intervention on the importance of the wedge to prevent future issues w/ hip.
--- NOTE | 2022-05-14 18:52 | PC.NURSE ---
pt has became restless t/o shift, he is sitting on the side of bed, refusing to wear wedge. pt has been made aware of possible risks of doing so. pt is also refusing to wear nc. pts call brunson is within reach, personal items on bedside table, bed alarm on. will continue to monitor.
--- NOTE | 2022-05-14 19:15 | PC.NURSE ---
pt has a hard non tender, lump on the right side of groin.
--- NOTE | 2022-05-14 19:24 | PC.NURSE ---
Pt has become very agitated and restless. Throwing off wedge. MD Spears paged at this time
[2022-05-15 04:00] VITALS: BP 127/66; PULSE 105; RESP 15; TEMP 37.3; O2SAT 95
--- NOTE | 2022-05-15 04:37 | PC.NURSE ---
Patient has been very noncompliant this shift. Refuses to wear his wedge, and to wear his scud on left leg. Pt pulled out his IV. Inserted another 20G in right forearm. Pt has been restless at times t/o shift, sitting up in the bed, asking to walk around his room. Educated patient numerous times on the importance of using the wedge, and to remain in bed. Pt was pulling at his dressing on the right hip, reinforced dressing with tape. Pt has c/o of pain in hip x2 this shift, administered meds per JAN. Pt remains on RA with O2 sat >90%. Pt has remained A/O with spurts of confusion. Pt is easily reorientated. Pt has used urinal independently.
[2022-05-15 04:57] VITALS: BMI 19.2
[2022-05-15 06:59] LABS: Basophils # 0.1 K/mm3 (0-0.2); Basophils % 0.7 % (0.1-2.0); Eosinophils % 0.1 % (0.1-12.0); Hematocrit 33.4 % (42.0-52.0); Hemoglobin 10.4 g/dL (14.1-18.0); Lymphocytes # 1.8 K/mm3 (0.7-4.5); Lymphocytes % 15.6 % (10-50); Mean Corpuscular Hemoglobin 30.8 pg (27.0-31.2); Mean Corpuscular Volume 99.5 fl (80-94); Mean Platelet Volume 8.9 fl (7.4-10.4); Monocytes # 0.7 K/mm3 (0.1-1.0); Monocytes % 6.4 % (1.7-9.3); Neutrophils # 8.7 K/mm3 (1.8-7.8); Neutrophils % 77.3 % (37.0-80.0); Platelet Count 197 K/mm3 (142-424); Red Blood Count 3.36 M/mm3 (4.60-6.20); Red Cell Distribution Width 15.8 % (11.5-17.5); White Blood Count 11.3 K/mm3 (4.8-10.8)
[2022-05-15 07:08] LABS: Chloride 107 mmol/L (98-107); Potassium 3.6 mmoL/L (3.5-5.1); Sodium 137 mmol/L (136-145)
[2022-05-15 07:11] LABS: Anion Gap 8.6 mEq/L (5-15); Blood Urea Nitrogen 12 mg/dl (9-20); Carbon Dioxide 25 mmol/L (22.0-30.0); Creatinine Clearance Estimated 47 mL/min (50-200); Estimated Glomerular Filt Rate 107 ml/min (>60); GFR (African American) 130 ML/MIN (>60)
[2022-05-15 07:12] LABS: Calcium 8.9 mg/dl (8.4-10.2); Glucose 90 mg/dl (74-100)
[2022-05-15 08:00] VITALS: BP 128/62; PULSE 87; RESP 18; TEMP 37.2; O2SAT 96
--- NOTE | 2022-05-15 09:27 | HMH.PTEV ---
Physical Therapy Evaluation Rehab PT IP Evaluation Start: 05/14/22 11:07 Freq: ONCE Status: Active Protocol: Document 05/15/22 09:24 PHORNE (Rec: 05/15/22 09:27 PHORNE [id number]) Subjective/History History History 82 yowm adm to [facility] for R JENS secondary to OA. He reports he lives alone and uses a walker for ambulation at times. 1 step to enter the home. Subjective Subjective Pt reports R LE soreness, but less pain than prior to surgery. He reports he does not like the ABD pillow at all . Rehab PT IP Eval Objective Appearance Patient Behavior Appropriate Patient Orientation Person,Place,Time Difficulty following instructions none Speech Pattern Clear Ambulation Patient Able to Ambulate Yes Ambulation Observation IP General Gait Pattern Observation Antalgic Gait Ambulation Distance (feet) 4 Ambulation Assistive Device Rolling Walker Ambulation Ability Minimal x 1 (25% assist) Balance Ability to Arise Able, uses arms to help Sitting Balance Steady, safe Standing Balance Steady, wide stance Dynamic Sitting Balance Ability Good Dynamic Standing Balance Ability Fair Transfers Bed Transfer Ability Minimal x 1 (25% assist) Chair Transfer Ability Minimal x 1 (25% assist) Sit to Stand Bed Transfer Ability Minimal x 1 (25% assist) Sit to Stand Chair Transfer Ability Minimal x 1 (25% assist) Rehab PT IP prob,goals,plan Problems Date of Evaluation: 05/15/22 PT IP Problems Bed Mobility,Transfers,Gait, Self care Rehab Potential Rehab Potential Good Plan PT Intervention Plan Bed Mobility,Transfers,Gait, Self care,Therapeutic Exercise PT Plan Frequency BID Duration LOS Discharge Goals Bed Transfer Ability Contact Guard/Hand Hold Sit to Stand Chair Transfer Ability Contact Guard/Hand Hold Ambulation Assistive Device Rolling Walker Ambulation Distance (feet) 25 Discharge Plan PT Discharge Plan Pt is currently most appropriate for rehab placement once medically stable. G -code Required No Eval Complexity Eval Charge Codes 55076 - Moderate Complexity PHYSICIAN CERTIFICATION: I certify the specified therapy services for Taiwo Jara are required, authorized, and rev
--- NOTE | 2022-05-15 09:32 | HMH.ORTHPN ---
Subjective Date: 05/15/22 <Danielle Lr - 05/15/22 09:37> Time: 08:35 <Danielle Lr - 05/15/22 09:37> Principal diagnosis: s/p right total hip arthroplasty <Danielle Lr - 05/15/22 09:37> Interval history: Nursing staff reports that patient was agitated last evening and refused to wear the abduction pillow. He is doing better today and appears comfortable. He is still reluctant to keep the abduction pillow between the legs. <Festus Spears - 05/15/22 21:32> Patient is an 82-year-old male admitted to the acute inpatient service following an uneventful primary right total hip arthroplasty performed by Dr. Spears yesterday 05/14/2022. Today the patient is postop day #1. This morning he is sitting comfortably in a chair at the bedside. He reports some pain in his right hip as to be expected at this stage but states that it is well controlled with as needed pain medication and rest. He states that he is eating and drinking well and denies any episodes of nausea or vomiting. He states that he was able to ambulate with the assistance of physical therapy this morning and that this went well. He denies any history of fevers, chills, rigors, or distal tingling/numbness. He denies any other symptoms or concerns at this time. <Danielle Lr - 05/15/22 09:37> PN: Obj Ex Vital signs: Temp Pulse Resp BP Pulse Ox 98.6 F 77 20 113/47 L 91 L 05/15/22 19:41 05/15/22 19:41 05/15/22 19:41 05/15/22 19:41 05/15/22 19:41 <Festus Spears - 05/15/22 21:32> Temp Pulse Resp BP Pulse Ox 99.0 F 87 18 128/62 96 05/15/22 08:00 05/15/22 08:00 05/15/22 08:00 05/15/22 08:00 05/15/22 08:00 <Danielle Lr - 05/15/22 09:37> Narrative: Laboratory Results - last 24 hr 05/15/22 06:36: WBC 11.3 H, RBC 3.36 L, Hgb 10.4 L, Hct 33.4 L, MCV 99.5 H, MCH 30.8, MCHC 31.0 L, RDW 15.8, Plt Count 197, MPV 8.9, Neut % (Auto) 77.3, Lymph % (Auto) 15.6, [place] % (Auto) 6.4, Eos % (Auto) 0.1, Baso % (Auto) 0.7, Neut # (Auto) 8.7 H, Lymph # (Auto) 1.8, [place] # (Auto) 0.7, Eos # (Auto) 0.0, Baso # (Auto) 0.1 05/15/22 06:36: Sodium 137, Potassium 3.6, Chloride 107, Carbon Dioxide 25, Anion Gap 8.6, BUN 12, Creatinine 0.70, Estimated Creat Clear 47, Estimated GFR 107, Est GFR ( Amer) 130, Glucose 90, Calcium 8.9 Intake & Output 05/13/22 05/14/22 05/15/22 05/16/22 11:59 11:59 11:59 11:59 Intake Total 1999 925 / 925 945 / 945 Output Total 550 / 550 Balance 1999 375 / 375 945 / 945 Weight 144 lb 134 lb 3 oz <SpearsFestus Johan - 05/15/22 21:32> - Constitutional no acute distress, thin, cooperative <Danielle Lr 05/15/22 09:37> - Routine HEENT Exam Head: Present: normocephalic, atraumatic <Danielle Lr 05/15/22 09:37> Eye: Present: EOMI, PERRL <Danielle Lr 05/15/22 09:37> ENT: Present: mucous membranes moist <Danielle Lr 05/15/22 09:37> - Routine Neck Exam Present: supple, full ROM, trachea midline. Absent: JVD, lymphadenopathy <Danielle Lr 05/15/22 09:37> - Routine Respiratory Exam Absent: accessory muscle use, respiratory distress <Danielle Lr 05/15/22 09:37> Comments: Symmetric chest movement, able to speak in complete sentences <Danielle Lr 05/15/22 09:37> - Routine Cardiovascular Exam Present: RRR <Lr,Danielle 05/15/22 09:37> Comments: Normal peripheral pulses <BeDanielle 05/15/22 09:37> - Routine Abdominal Exam Present: soft. Absent: tenderness <LrDanielle calvert 05/15/22 09:37> - Routine Extremities Exam Comments: Upon examination of the lower extremities: The limb lengths are equal. Dressings present over the right hip are clean, dry, and intact. No evidence of drainage or bleeding noted. The right hip and proximal femur are tender to palpation. Attempted movements of the right hip are somewhat painful. Thigh and calf are soft and nontender; Homans' sign is negative. No clinical evidence
--- NOTE | 2022-05-15 11:29 | HMH.OTEV ---
OT Inpatient Evaluation Rehab OT IP Evaluation Start: 05/14/22 11:07 Freq: ONCE Status: Complete Protocol: Document 05/15/22 11:23 JAN (Rec: 05/15/22 11:28 [id number]) Rehab OT IP Assessment Subjective History Pt oriented x 3 on arrival. Pt agreeable to engage in therapy evaluation. Pt was admitted on 05/14/22 following a right total hip arthroplasty . Prior to having this operation, pt lived at home alone. Pt claims he was independent with all ADLs. However, he does report he was unable to complete IADLs. He normally cooked small microwave meals. However, he was dependent upon his family to complete all IADLs such as cooking, grocery shopping, and laundry. He did use a walker during ambulation recently. Subjective I am in a little pain. Pt sitting in chair on arrival . Pt stood from chair with mod assist 2x's. Pt was left sitting in chair with call brunson and all other needs in reach. Objective Patient Orientation Person,Place,Birthday Upper Extremity Gross ROM Min Limitation <25% Shoulder ROM Limitations Muscle Weakness Elbow ROM Limitations Muscle Weakness Wrist Limitations of Range of Motion Muscle Weakness Transfer Training Sit/Stand Transfer Assist Level Moderate x 1 (50% assist) Rehab OT IP prob,goals,plan Problems Date of Evaluation: 05/15/22 OT IP Problems Bed Mobility,Transfers,Gait, Balance,Self care,Safety Rehab Potential Rehab Potential Good Equipment Needs Assistive Devices Rolling / Wheeled Walker Plan OT intervention Plan Bed Mobility,Transfers,Gait, Balance,Self care,Safety, Therapeutic Exercise OT Plan Frequency BID Duration LOS Discharge Goals Bed Mobility Ability Assistance x1 Sit to Stand Chair Transfer Ability Minimal x 1 (25% assist) Chair Transfer Ability Minimal x 1 (25% assist) Chair Transfer Technique Sit to/from Ambulatory Chair Transfer Assistive Devices Rolling Walker
[2022-05-15 11:55] VITALS: BP 90/40; PULSE 65; RESP 18; TEMP 36.9; O2SAT 95
--- NOTE | 2022-05-15 12:03 | PC.NURSE ---
ROUNDED ON PATIENT. HE IS UP TO CHAIR EATING TACO HERNANDEZ. MINIMAL COMPLAINTS OF SORENESS WITH HIP. IT IS NOTED BP IS ON LOWER END. WENT OVER MEDICATIONS WITH PATIENT AND HE HAD NO CONCERNS. WELL AN UNDERSTANDING OF PLAN OF CARE. FAMILY ALSO HAS NO QUESTIONS AT THIS TIME.
[2022-05-15 13:15] VITALS: BP 99/45
[2022-05-15 15:31] VITALS: BP 103/52; PULSE 82; RESP 16; TEMP 36.9; O2SAT 92
--- NOTE | 2022-05-15 16:13 | PC.NURSE ---
PT IS RESTING IN BED. STATED HE WAS IN PAIN EARLIER WHILE SITTING UP IN THE CHAIR. AT THE TIME PT'S BP WAS 90/40. WHEN PT GOT BACK TO BED WITH PHYSICAL THERAPY BP WAS RECHECKED AND IT WAS 99/45. PT STATED HE WAS NOT IN ANY PAIN AT THIS TIME AND REFUSED HIS SCHEDULED DOSE OF GABAPENTIN. DRESSING TO THE RT HIP C/D/I. PT HAS BEEN REFUSING TO WEAR ABDUCTOR PILLOW WHILE IN BED BUT WITH SOME ENCOURAGEMENT FROM AND NURSE PT IS NOW MORE AGREEABLE TO WEARING IT WHILE IN BED. PT NOW HAS A CONSULT FOR MEDICAL MANAGEMENT ([facility]) FOR DELIRIUM AND HYPOTENSION. WILL CONTINUE TO MONITOR.
[2022-05-15 19:41] VITALS: BP 113/47; PULSE 77; RESP 20; TEMP 37; O2SAT 91
--- NOTE | 2022-05-15 20:43 | HMH.ACPN2 ---
Internal Medicine - PN: Subj *Date: 05/15/22 *Time: 19:30 Interval history: This is a pleasant 82-year-old male with history of hypertension, osteoarthritis, pain, COPD, and BPH who presented for elective right total hip arthroplasty. Long history of degenerative arthritis of the right hip and has been in pain for many years. Impacting his ADLs and quality of life. No known fall or injury. No fractures. Procedure was uneventful per surgery notes. After his procedure however he had some low blood pressure and confusion. Medicine was consulted to assist with comorbid conditions in light of his advanced age, hypotension, and altered mental status. On assessment this evening, patient is alert and oriented x3. Hemodynamically stable. Vitals within a normal range. Complains only of pain. Denies any chest pain, shortness of breath, nausea, vomiting, diarrhea. Overall feels pretty good. Reviewed home medications and vitals per chart. 14 point review of systems performed, pertinent positives and negatives as per HPI Exam Vital signs and Labs for Last 24 Hours: Temp Pulse Resp BP Pulse Ox 98.6 F 77 20 113/47 L 91 L 05/15/22 19:41 05/15/22 19:41 05/15/22 19:41 05/15/22 19:41 05/15/22 19:41 Laboratory Results - last 24 hr 05/15/22 06:36: WBC 11.3 H, RBC 3.36 L, Hgb 10.4 L, Hct 33.4 L, MCV 99.5 H, MCH 30.8, MCHC 31.0 L, RDW 15.8, Plt Count 197, MPV 8.9, Neut % (Auto) 77.3, Lymph % (Auto) 15.6, [place] % (Auto) 6.4, Eos % (Auto) 0.1, Baso % (Auto) 0.7, Neut # (Auto) 8.7 H, Lymph # (Auto) 1.8, [place] # (Auto) 0.7, Eos # (Auto) 0.0, Baso # (Auto) 0.1 05/15/22 06:36: Sodium 137, Potassium 3.6, Chloride 107, Carbon Dioxide 25, Anion Gap 8.6, BUN 12, Creatinine 0.70, Estimated Creat Clear 47, Estimated GFR 107, Est GFR ( Amer) 130, Glucose 90, Calcium 8.9 I & O for Last 24 hours: Intake & Output 05/12/22 05/13/22 05/14/22 05/15/22 23:59 23:59 23:59 23:59 Intake Total 2635 / 2635 1235 / 1235 Output Total 350 / 350 200 / 200 Balance 2285 / 2285 1035 / 1035 Weight 64.495 kg 60.866 kg - Constitutional no acute distress, thin - *Routine HEENT Exam Head: Present: normocephalic Eye: Present: EOMI, PERRL ENT: Present: mucous membranes moist - *Routine Neck Exam Present: supple. Absent: lymphadenopathy - *Routine Respiratory Exam Present: CTA bilaterally - *Routine Cardiovascular Exam Present: RRR - *Routine Abdominal Exam Present: soft, normoactive bowel sounds. Absent: tenderness - *Routine Extremities Exam Absent: cyanosis, clubbing, edema Comments: Right leg with surgical bandage overlying right hip, mild tenderness. Bandage clean dry and intact. - *Routine Skin Exam Present: warm. Absent: rash - *Routine Neurological Exam Present: alert, oriented X3 Assessment and Plan (1) S/P total right hip arthroplasty Status: Acute Category: Surgical Code(s): Z96.641 - Presence of right artificial hip joint (2) Essential hypertension Status: Chronic Category: Medical Code(s): I10 - Essential (primary) hypertension (3) COPD (chronic obstructive pulmonary disease) Status: Chronic Category: Medical Code(s): J44.9 - Chronic obstructive pulmonary disease, unspecified (4) BPH (benign prostatic hyperplasia) Status: Chronic Category: Medical Code(s): N40.0 - Benign prostatic hyperplasia without lower urinary tract symptoms - Assessment and plan all Dx Assessment and Plan for all problems:: Mr. Jara is a pleasant 82-year-old gentleman status postelective right hip total arthroplasty. Vitals appear to have stabilized. Unclear etiology for confusion however given advanced age and preceding anesthesia, suspect this is the likely culprit. No focal neurologic deficits on exam. Have reviewed home medications. We will resume medication for BPH, cholesterol, and COPD. Not on any other antihypertensives at this time. Continue close monitoring of vitals. Repeat labs
[2022-05-16 03:52] VITALS: BP 125/61; PULSE 93; RESP 16; TEMP 36.9; O2SAT 96
--- NOTE | 2022-05-16 04:30 | PC.NURSE ---
Patient has rested well this shift. Pt has voiced no c/o of pain this shift. Refuses to wear abductor pillow. Pt has used his urinal independently. Remains on RA with O2 sats >90%. Bed alarm on for safety.
[2022-05-16 04:52] VITALS: BMI 19.3
[2022-05-16 07:54] VITALS: BMI 19.3
[2022-05-16 08:00] VITALS: BP 115/55; PULSE 94; RESP 16; TEMP 36.9; O2SAT 96
--- NOTE | 2022-05-16 08:19 | P.PN_ITS ---
Internal Medicine - PN: Subj *Date: 05/16/22 *Time: 08:20 Interval history: General medicine consult follow-up accordingly Patient repots that he is in much better spirits, does complain of dysuria. Has urinated quite a bit with increased frequency overnight Exam Vital signs and Labs for Last 24 Hours: Temp Pulse Resp BP Pulse Ox 98.5 F 93 H 16 125/61 96 05/16/22 03:52 05/16/22 03:52 05/16/22 03:52 05/16/22 03:52 05/16/22 03:52 I & O for Last 24 hours: Intake & Output 05/13/22 05/14/22 05/15/22 05/16/22 11:59 11:59 11:59 11:59 Intake Total 1999 925 / 925 1970 Output Total 550 / 550 300 / 300 Balance 1999 375 / 375 1671 / 1671 Weight 144 lb 134 lb 3 oz 134 lb 15.825 oz - Constitutional no acute distress - *Routine HEENT Exam Head: Present: normocephalic Eye: Present: EOMI, PERRL ENT: Present: mucous membranes moist - *Routine Neck Exam Present: supple. Absent: lymphadenopathy - *Routine Respiratory Exam Present: CTA bilaterally - *Routine Cardiovascular Exam Present: RRR - *Routine Abdominal Exam Present: soft, normoactive bowel sounds. Absent: tenderness - *Routine Extremities Exam Absent: cyanosis, clubbing, edema - *Routine Skin Exam Present: warm. Absent: rash - *Routine Neurological Exam Present: alert, oriented X3 Assessment and Plan (1) S/P total right hip arthroplasty Status: Acute Category: Surgical Code(s): Z96.641 - Presence of right artificial hip joint (2) Dysuria Status: Acute Category: Medical Code(s): R30.0 - Dysuria - Assessment and plan all Dx Assessment and Plan for all problems:: 1. status post hip arthroplasty. Seems to be doing well. No change in pain management. Okay with discharge to shelter if okay with orthopedics 2. Dysuria.... check UA. Treat if indicated
[2022-05-16 08:37] LABS: Coronavirus 19, PCR Not Detected (NotDetected); Influenza A, PCR Not Detected (NotDetected); Influenza B, PCR Not Detected (NotDetected)
--- NOTE | 2022-05-16 10:06 | PC.NURSE ---
patient sitting up in chair visiting with family. states he is feeling good today. no complaints or concerns. no questions about medication. hard of hearing. wrote date in large letters on board per patient requests. no needs at this time
--- NOTE | 2022-05-16 10:52 | HMH.DCSUM ---
General - General Admission date:: 05/14/22 <Festus Spears - 05/16/22 13:24> 05/14/22 <LrDanielle calvert - 05/16/22 10:52> Discharge date: 05/16/22 <Lr,Danielle - 05/16/22 10:52> HPI HPI: Patient is an 82 year old male admitted to the inpatient service today following an uneventful right total hip arthroplasty. He is known to have severe degenerative arthritis of the the right hip and has had pain for many years that has gradually worsened, becoming debilitating in the past few months. No known injury. He complains of constant pain in his right hip that he rates a 10 out of 10 at all times. He states that the pain radiates down to his knee and is aggravated with standing, walking, climbing stairs, or going from a seated to standing position. He reports that he takes prescribed Brenton for his pain with no relief. He also reports frequent sleep disturbances and night pain. At baseline he typically ambulates without a cane or walker, but states that he has just recently began use of a walker in the past few months due to the pain worsening. He is also using a wheelchair for longer distances, as he states he cannot walk more than a few feet without significant pain. He has also noticed that his right leg is shorter than his left. He reports that the pain makes all activities of daily living difficult and has caused him to be less active than he would like. He denies any back pain or distal numbness/tingling. His past medical history is significant for hyperlipidemia, hypertension, COPD, and cancer (prostate, oral, lung). He was scheduled to begin radiation treatments for his cancer but has postponed treatment, as he is more concerned about his hip pain which is significantly impacting his quality of life. 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 Following surgery, this afternoon the patient is sitting comfortably in bed. He states that he had lunch and is eating and drinking well. No episodes of nausea or vomiting. He states that his right hip feels sore but denies pain. He reports some numbness/tingling in the right lower extremity; he received spinal anesthesia. No history of chest pain, palpitations, shortness of breath, fevers, chills, or rigors. He denies any other symptoms or concerns at this time. <Danielle Lr - 05/16/22 10:59> Hospital Course Hospital Course: Following an uncomplicated primary right total hip arthroplasty the patient was admitted to the inpatient service and has progressed well. His postoperative check x-ray was satisfactory with good alignment and fixation of the orthopedic components. He was advised to ambulate weightbearing as tolerated on the right lower extremity and has managed this very well using the walker. His pain is well controlled with oral analgesics. He is eating and drinking well without any difficulty. The patient is medically stable at the time of discharge and was medically cleared for discharge by Dr. Rojas, Dr. Spears, and was also cleared for discharge by physical therapy. The surgical dressings were changed on the second postoperative day and the surgical incision appears healthy and is healing well. No erythema, induration, purulent drainage, bleeding, or other signs of infection noted. Distal neurovascular status is intact and there is no clinical evidence of DVT. The patient was began on aspirin 325 mg daily for DVT prophylaxis after surgery. On the day of discharge, he is afebrile and the patient's vital signs have been stable throughout his admission. He is being discharged to [facility]/assisted facility for postoperative rehabilitation. <Danielle Lr - 05/16/22 11:04> Objective Vital signs: Temp Pulse Resp BP Pulse Ox 98.5 F 94 H 16 115/55 L 96 05/16/22 08:00 05/16/22 08:00 05/16/22 08:00 05/16/22 08:00 05/16/22 08:00 <Festus Spears - 05/16/22 13:24> Temp Pulse Resp BP Pulse Ox 98.5 F 94 H
--- NOTE | 2022-05-16 16:00 | PC.NURSE ---
PT HAS BEEN DISCHARGED TO [facility] PER [facility]. PT WAS SENT WITH ABDUCTOR PILLOW AND WAS EDUCATED ON HOW IMPORTANT IT WAS TO WEAR WHILE HE WAS IN BED. PT WAS MADE AWARE BEFORE DISCHARGE THAT HIS PAIN MEDICATION WAS STILL PENDING TRANSFER TO [facility]PROP[facility]ATE [facility]. 'S OFFICE WAS CALLED AND STATED THEY WOULD NOTIFY TO LET HIM KNOW HE NEEDED TO TRANSFER PAIN MEDICATION SCRIPT. PT STATED HE DID NOT WANT TO WAIT ANY LONGER AND HE HAS BEEN READY TO LEAVE SINCE THIS MORNING.
[2022-05-17 08:13] VITALS: BP 156/56; PULSE 56; TEMP 36.4
--- NOTE | 2022-05-17 08:13 | HMH.ANESII ---
[facility] Anesthesia Record Part II Discharge Time: 11:35 Destination: 2 Floor PACU nurse assessment reviewed?: Yes Patient Condition:: Good Anesthesia Complications:: None Swallowing reflex intact?: Yes Cyanosis?: No Blood Pressure: 156/56 Pulse Rate: 56 Temperature: 97.5 F Mental Status: Alert & Oriented Pain level:: 0 Nausea and/or vomitting:: None Intake, IV Amount: 0
--- NOTE | 2022-05-17 11:42 | CARE MANAGER ---
Spoke with Oanh Nation related to discharge from hospital. Nurse states he is complaining of burning with urination and she spoke with Dr. Carballo about it. Other than that he is doing well. TIFFANY Allen
== END 2022-05-16 15:40 | DRG 470 ==
LOC: 2ND 09:48
PROVIDERS: Physician Assistant Surgical; Admitting Provider Orthopaedic Surgery; PCP Internal Medicine Adolescent Medicine; Visit Provider Orthopaedic Surgery
PROC: 0SR901A Replacement of Right Hip Joint with Metal Synthetic Substitute, Uncemented, Open Approach (ICD-10-PCS; CPT 27130; principal; 2022-05-14 07:30)
DX: M16.11 Unilateral primary osteoarthritis, right hip (principal); J44.9 Chronic obstructive pulmonary disease, unspecified; I10 Essential (primary) hypertension; Z85.9 Personal history of malignant neoplasm, unspecified; F17.210 Nicotine dependence, cigarettes, uncomplicated; N40.0 Benign prostatic hyperplasia without lower urinary tract symptoms; E78.5 Hyperlipidemia, unspecified; Z85.46 Personal history of malignant neoplasm of prostate; Z85.118 Personal history of other malignant neoplasm of bronchus and lung
CPT/HCPCS: 27130; 36415; 73502; 80048; 81001; 85025; 88304; 88311; 88342; 93005; 96374; 97116; 97162; 97166; 97530; C1713; C1776; C9803; J2704; J3370; U0003; U0005

== ENCOUNTER 2022-05-27 11:20 | Emergency (ER) | payer MEDICARE, OTHER, SELFPAY ==
[2022-05-27] VITALS (8 sets, daily range): BP systolic 109–134; BP diastolic 50–70; PULSE 65–76; RESP 16–22; TEMP 36.8; O2SAT 95–99; BMI 17.4
--- NOTE | 2022-05-27 11:36 | HMH.EDGENADL ---
ED Disposition Clinical Impression: Soft tissue mass, Mass of spine, Mass of upper lobe of right lung, Pulmonary nodules, Loculated left lateral pneumothorax, Nasopharyngeal cancer Hematuria Qualifiers: Hematuria type: unspecified type Qualified Code(s): R31.9 - Hematuria, unspecified Disposition: Home, Self-Care Condition on Discharge: Good Additional Instructions: Follow-up with Dr. Laura for mass of spine at L3 and soft tissue mass on left upper back. Call Dr. Laura tomorrow to arrange further evaluation and treatment. CT scan discs and reports have been provided to relay to Dr. Laura. Urine culture has been performed, results generally take 2 to 3 days. Follow-up the results of this test with your primary care provider within 2 to 3 days. Thurmont as needed for pain. Additional instructions for CONTROLLED SUBSTANCES: You have been prescribed a medication that is a controlled substance. Controlled substances include pain medications known as opiates and sedative nerve medications known as benzodiazepines. Tramadol, fioricet, and gabapentin are also controlled substances. Some common opiates include: Codeine (such as Tylenol #3) Hydrocodone (Vicodin, Lortab, Lorcet, Thurmont) Oxycodone (Percocet, Percodan, Oxycodone, Oxy IR) Some common benzodiazepines include: Diazepam (Valium) Lorazepam (Ativan) Alprazolam (Xanax) Clonazepam (Klonopin) Oxazepam (Serax) All of these controlled substances are highly addictive and frequently abused. Misuse can and frequently does lead to addiction as well as overdose and . Medication should be stored in a locked cabinet or other secure storage unit. Do not store the medication in a motor vehicle. Short term supplies, 3 days or less, are prescribed because of the highly addictive nature of the medication. Any of the controlled substance medication NOT taken should be disposed of properly and NOT SAVED. The recommended method of disposing of unused medications is: Place the medicines in a sealable plastic bag. If the medicine is a solid, crush it or add water to dissolve it. Add something undesirable (cat litter, coffee grounds, etc.) Dispose of sealed bag in household trash Do not flush or pour unused medicines down a sink or drain. Controlled substances should not be shared, given away or sold. Because of the addictive nature and frequent abuse, these medications are sometimes stolen. These medications should be kept in a safe place where they cannot be stolen. Do not keep them in your car or purse. Lost or stolen prescriptions for controlled substances WILL NOT BE REFILLED in this emergency department, regardless of whether a police report was filed. Prescriptions: Hydrocod/Acet 5/325 mg [Thurmont 5/325mg tablet] 1 tab PO Q6HP PRN #20 tab PRN Reason: Pain Prescription Printed Referrals: Dimas Laura MD [Primary Care Provider] - - Critical Care Critical Care Time: No Attestation: On 05/27/22, the high probability of a clinically significant, sudden or life threatening deterioration of the following system(s) required my full and direct attention, intervention and personal management. The time I documented below is in addition to time spent performing reported procedures but includes the following listed in this critical care notation. Medical Decision Making - Medical Records Medical records reviewed: Yes: I reviewed the patient's medical records. MR Comment: Reviewed discharge summary from admission for total hip replacement 05/14/2022. Reviewed oncology note from Dr. Rose 03/08/2022. Reviewed ENT note from Dr. Geller 03/01/2022. - Shaun Inquiry Pt receiving controlled substance: No Vital Signs: 05/27/22 11:21 05/27/22 11:36 05/27/22 12:00 Temperature 98.3 F Temperature Source Oral Pulse Rate 70 76 Pulse Rate [Left Radial] 67 Respiratory Rate 18 22 Blood Pressure 111/58 L 109/60 L Blood Pressure [Right Arm] 109/55 L
--- NOTE | 2022-05-27 11:42 | PC.NURSE ---
ER at speaking with patient and family
[2022-05-27 11:48] LABS: Basophils # 0.1 K/mm3 (0-0.2); Basophils % 0.7 % (0.1-2.0); Eosinophils # 0.3 K/mm3 (0.0-0.4); Hemoglobin 8.5 g/dL (14.1-18.0); Lymphocytes # 1.4 K/mm3 (0.7-4.5); Lymphocytes % 23.1 % (10-50); Mean Corpuscular HGB Conc 31.5 g/dL (31.8-35.4); Mean Corpuscular Hemoglobin 30.2 pg (27.0-31.2); Mean Corpuscular Volume 95.9 fl (80-94); Mean Platelet Volume 8.8 fl (7.4-10.4); Monocytes # 0.3 K/mm3 (0.1-1.0); Monocytes % 4.3 % (1.7-9.3); Neutrophils # 4.3 K/mm3 (1.8-7.8); Platelet Count 348 K/mm3 (142-424); Red Blood Count 2.82 M/mm3 (4.60-6.20); Red Cell Distribution Width 15.1 % (11.5-17.5); White Blood Count 6.3 K/mm3 (4.8-10.8)
--- NOTE | 2022-05-27 11:49 | CT_ITS ---
PROCEDURE INFORMATION: Exam: CT Abdomen And Pelvis Without Contrast Exam date and time: 05/27/2022 12:08 PM Age: 82 years old Clinical indication: Other: Hematuria in urine; Additional info: Hematuria, abd done with contrast TECHNIQUE: Imaging protocol: Computed tomography of the abdomen and pelvis without contrast. Radiation optimization: All CT scans at this facility use at least one of these dose optimization techniques: automated exposure control; mA and/or kV adjustment per patient size (includes targeted exams where dose is matched to clinical indication); or iterative reconstruction. COMPARISON: None FINDINGS: Lungs: Emphysematous change, interstitial prominence, and right basilar parenchymal stranding. Bilateral pleural thickening and left pleural calcification. Liver: No focal hepatic mass. Gallbladder and bile ducts: Contracted gallbladder with cholelithiasis and borderline wall thickening. Pancreas: Punctate pancreatic calcification, without focal mass or ductal dilatation. Spleen: No splenomegaly. Enlarged spleen measuring 13.2 cm in length. Adrenal glands: Unremarkable adrenals. Left adrenal nodularity. Kidneys and ureters: 4.0 cm exophytic left renal cyst. No hydronephrosis. Stomach and bowel: Mild small bowel dilatation without a transition zone. Prominent stool. Diverticula, without pericolonic inflammation. Appendix: Nonvisualization of the appendix. Intraperitoneal space: No significant free fluid. Vasculature: Vascular calcification and ectasia. 3.1 cm infrarenal abdominal aortic aneurysm. Lymph nodes: Subcentimeter lymph nodes. Urinary bladder: Evaluation of the inferior pelvis is limited by beam hardening artifact in association with right hip arthroplasty Silverio catheter in the decompressed bladder with suspected wall thickening. Reproductive: Calcifications in the enlarged prostate which produces extrinsic compression of the bladder base with loss of normal fascial planes. Bones/joints: Right hip arthroplasty. Mild multilevel lumbar spinal stenosis in association with disc bulging, ligamentous hypertrophy, and degenerative change. Localized erosive change involving the opposing L2 and L3 vertebral endplates, raising the possibility of discitis. Osseous destruction involving the posterior elements of the L3 vertebra with associated poorly defined 3.8 cm soft tissue mass extending into the central canal. Additional soft tissue attenuation in the right L2-L3 neural foramen. These findings can be better evaluated with MRI or CT myelography, as clinically indicated. Soft tissues: Poorly defined multiloculated cystic collection in the right gluteus muscle, with the largest component measuring 5.5 x 3.9 x 5.0 cm. If abscess is of clinical concern, percutaneous aspiration may be of benefit for combined diagnostic and therapeutic purposes. IMPRESSION: 1. Osseous destruction involving the posterior elements of the L3 vertebra with associated poorly defined 3.8 cm soft tissue mass extending into the central canal. Additional soft tissue attenuation in the right L2-L3 neural foramen. These findings can be better evaluated with MRI or CT myelography, as clinically indicated. 2. Poorly defined multiloculated cystic collection in the right gluteus muscle, with the largest component measuring 5.5 x 3.9 x 5.0 cm. If abscess is of clinical concern, percutaneous aspiration may be of benefit for combined diagnostic and therapeutic purposes. 3. Additional findings as described above. The aforementioned findings initiated a critical results communication pathway. An addendum will be issued at the time of clincian notification. C
--- NOTE | 2022-05-27 11:49 | CT_ITS ---
PROCEDURE INFORMATION: Exam: CT Chest With Contrast; Diagnostic Exam date and time: 05/27/2022 12:08 PM Age: 82 years old Clinical indication: Mass, lump, or swelling in the chest; Additional info: Mass behind left shoulder, in upper shoulder neck area so we started scan higher than normal - also has known lung cancer TECHNIQUE: Imaging protocol: Diagnostic computed tomography of the chest with contrast. Radiation optimization: All CT scans at this facility use at least one of these dose optimization techniques: automated exposure control; mA and/or kV adjustment per patient size (includes targeted exams where dose is matched to clinical indication); or iterative reconstruction. Contrast material: ISOVUE; Contrast volume: 75 ml; Contrast route: IV; COMPARISON: [facility] CT CHEST W/ CONTRAST 12/20/2016 12:41 PM FINDINGS: Lungs: Spiculated mass in the right apical lung measuring up to 2.4 x 3.2 cm. Findings are compatible with malignancy. A 1.4 cm nodule is seen in this location on CT 12/20/2016. There are 2 other satellite nodules in the right apical region each measuring approximately 10 mm. 7 mm nodule in the inferior RUL. 8 mm juxtapleural nodule in the DAVEY along the major fissure. These are also highly suspicious for malignancy. Mild emphysematous changes some of the emphysematous changes are subpleural in location. There is a somewhat linear area of pleural based air density in the left apical region Moderate nodular pleural plaques bilaterally some of which is associated with calcification. Findings may be related to prior asbestos exposure. Mild emphysematous changes. There is a small area of pleural or juxtapleural air density/pleural separation in the left apical paramediastinal region that has a somewhat linear appearance. A small loculated pneumothorax is not excluded. This is not seen on the available comparison CT from 2017. This is of questionable clinical significance. Old granulomatous disease. For Pleural spaces: See Lungs finding. Heart: Vascular calcifications including coronary artery calcifications. Lymph nodes: No enlarged lymph nodes. Vasculature: No aortic aneurysm. Adrenal glands: Indeterminate 10 mm nodule in the left adrenal gland, which is not previously identified. Bones/joints: Degenerative changes of the spine. Mild chronic midthoracic compression fracture. Soft tissues: 2.1 x 3.9 cm mass in the left posterior paramidline subcutaneous tissues at about the C7 level. Findings are highly suspicious for malignancy. IMPRESSION: 1. Multiple lung nodules, suggestive of malignancy/metastatic disease. Findings are greatest in the RUL. The dominant mass in the RUL measures up to 2.4 x 3.2 cm. 2. 2.1 x 3.9 cm mass in the left posterior paramidline subcutaneous tissues at about the C7 level. Findings are highly suggestive of malignancy. 3. Moderate bilateral nodular pleural plaques some of which have calcification. Findings are most suggestive of prior asbestos exposure. 4. There is a small area of pleural or juxtapleural air density/pleural separation in the left apical paramediastinal region that has a somewhat linear appearance. A small loculated pneumothorax is not excluded. This is not seen on the available comparison CT from 2017. This is of questionable clinical significance. Follow-up radiographs can be performed as clinically indicated. 5. Indeterminate 10 mm nodule in the left adrenal gland, which is not previously identified. Malignancy is not excluded. 6. Other findings as detailed in the body of the report. THIS REPORT CONTAINS FINDINGS THAT MAY BE CRITICAL TO PATIENT CARE. The findings were verbally communi
[2022-05-27 11:52] LABS: Microscopic, Urine URINE MICROSCOPIC (MICROSCOPIC)
[2022-05-27 11:55] LABS: Bilirubin,Urine Negative (Negative); Blood, Urine 3+ (Negative); Color,Urine AMBER (Yellow); Glucose,Urine (UA) Negative (Negative); Ketones,Urine Negative (Negative); Leukocyte Esterase,Urine Negative (Negative); Nitrate,Urine POSITIVE (Negative); Protein,Urine 2+ (Negative); Specific Gravity, Urine 1.025 (1.005-1.030)
[2022-05-27 11:55] LABS: Chloride 106 mmol/L (98-107); Potassium 3.2 mmoL/L (3.5-5.1); Sodium 138 mmol/L (136-145)
[2022-05-27 11:56] LABS: Appearance,Urine Slightly Cloudy (Clear)
[2022-05-27 11:57] LABS: Blood Urea Nitrogen 15 mg/dl (9-20); Creatinine Clearance Estimated 46 mL/min (50-200); Estimated Glomerular Filt Rate 92 ml/min (>60); GFR (African American) 111 ML/MIN (>60)
[2022-05-27 11:58] LABS: Alanine Aminotransferase 40 U/L (12-78); Albumin Level 2.7 g/dl (3.5-5.0); Albumin/Globulin Ratio 0.8 (1.1-1.8); Alkaline Phosphatase 93 U/L (38-126); Anion Gap 8.2 mEq/L (5-15); Aspartate Amino Transferase 57 U/L (17-59); Bilirubin,Total 0.2 mg/dl (0.2-1.3); Calcium 8.5 mg/dl (8.4-10.2); Carbon Dioxide 27 mmol/L (22.0-30.0); Globulin 3.2 g/dL (1.3-3.2); Glucose 158 mg/dl (74-100); Total Protein,Serum 5.9 g/dl (6.3-8.2)
[2022-05-27 12:22] LABS: RBC,Urine 50-100 #/hpf (0-3); WBC,Urine Occasional #/hpf (0-3)
[2022-05-27 12:23] LABS: Amorphous Sediment,Urine 4+ /lpf; Calcium Oxalate Crystals,Urine 1+ /lpf
--- NOTE | 2022-05-27 12:23 | PC.NURSE ---
pt returned from radiology by stretcher with electronic organ technician
[2022-05-27 12:30] LABS: Bacteria,Urine 1+ /lpf
--- NOTE | 2022-05-27 13:41 | PC.NURSE ---
talking with JAYNA
--- NOTE | 2022-05-27 13:49 | PC.NURSE ---
updated pt on poc and vrad results
--- NOTE | 2022-05-27 13:50 | PC.NURSE ---
Paged Dr. Delacruz; whose covering Dr. Laura today for ER MD
--- NOTE | 2022-05-27 13:51 | PC.NURSE ---
speaking to Dr. Delacruz
--- NOTE | 2022-05-27 13:52 | PC.NURSE ---
Karson ROUSSEAU speaking with Dr. Delacruz at this time
--- NOTE | 2022-05-27 14:03 | PC.NURSE ---
ER MD at speaking with patient and family regarding update on POC and results
--- NOTE | 2022-05-27 14:15 | PC.NURSE ---
CAlled radiology for disc.
== END 2022-05-27 15:08 | disposition home or self-care (01) ==
PROVIDERS: Emergency Provider Emergency Medicine; PCP Internal Medicine Adolescent Medicine
DX: R91.8 Other nonspecific abnormal finding of lung field (principal); M48.8X9 Other specified spondylopathies, site unspecified; R22.9 Localized swelling, mass and lump, unspecified; C11.9 Malignant neoplasm of nasopharynx, unspecified; R31.9 Hematuria, unspecified; Z96.0 Presence of urogenital implants; Z79.82 Long term (current) use of aspirin; Z79.899 Other long term (current) drug therapy; Z88.0 Allergy status to penicillin
CPT/HCPCS: 71260; 74176; 80053; 81001; 85025; 99284; Q9967